=== PATIENT | female | born 1980 | race Caucasian/White ===

== ENCOUNTER 2018-01-24 16:31 | Emergency (ER) | payer OTHER ==
[2018-01-24 16:42] VITALS: RESP 18
[2018-01-24] MEDS ORDERED: KETOROLAC 30 MG/ML 1 ML VIAL IVP STA (16:47)
[2018-01-24] MEDS ORDERED: METOCLOPRAMIDE 5 MG/ML 2 ML VIAL IVP STA (16:47)
[2018-01-24] MEDS ORDERED: ORPHENADRINE 30 MG/ML 2 ML VIAL IVP STA (16:47)
[2018-01-24] MEDS ORDERED: diphenhydrAMINE 50 MG/ML 1 ML VIAL IVP STA (16:47)
[2018-01-24] MEDS ORDERED: methylPREDNISolone SOD SUCCI 125 MG/2 ML VIAL IV STA (16:47)
--- NOTE | 2018-01-24 16:53 | ED ---
Headache HPI - General Chief Complaint: Headache Stated Complaint: Headache, Numbness in arm Time Seen by Provider: 01/24/18 16:39 Mode of arrival: ambulatory Limitations: no limitations - History of Present Illness Initial Comments: 37-year-old female patient presents to the emergency department today for complaints of neck pain and headache. Patient states that she has chronic neck pain after having a cervical fusion in 2011. Patient states she occasionally gets flareups where the neck becomes painful and she has some numbness to her left arm. Patient states that she has had a migraine headache for approximately one month. She states that shows a history of migraines so this is not unusual for her. She denies any nausea or vomiting. Denies any light or sound sensitivity. States she presented today because she was having increased pain with turning her head to the left. She denies any injury to the neck. Patient states that she recently had a medication change from Deford to Tramadol. She states the tramadol makes her nauseous so she does not take it. Patient states she has not been taking anything else for her symptoms. Patient denies any recent rash, fever, chills, shortness breath, chest pain, abdominal pain, diarrhea, constipation, back pain, dizziness, weakness, hematuria, dysuria , urinary urgency, urinary frequency, headache, visual changes, or any other complaints. - Related Data Home Medications Medication Instructions Recorded Confirmed FLUoxetine HCL [PROzac] 40 mg PO DAILY 05/17/14 01/24/18 clonazePAM [KlonoPIN] 1 mg PO BID PRN 05/17/14 01/24/18 Ondansetron Odt [Zofran Odt] 4 mg PO Q8HR PRN 04/27/16 01/24/18 FLUoxetine HCL [PROzac] 20 mg PO DAILY 01/24/18 01/24/18 Meclizine [Antivert] 25 mg PO TID PRN 01/24/18 01/24/18 Previous Rx's Medication Instructions Recorded Cyclobenzaprine [Flexeril] 10 mg PO TID #15 tab 01/24/18 Hydrocodone/Acetaminophen [[place] 1 tab PO Q6HR PRN #12 tab 01/24/18 5-325] Ibuprofen [Motrin] 600 mg PO Q8HR PRN #30 tab 01/24/18 predniSONE 50 mg PO DAILY #5 tablet 03/30/18 Allergies Allergy/AdvReac Type Severity Reaction Status Date / Time codeine Allergy Dyspnea Verified 01/24/18 16:50 fexofenadine HCl Allergy Dyspnea Verified 01/24/18 16:50 [From Janett] ketorolac tromethamine Allergy Unknown Verified 01/24/18 16:50 [From Toradol] Review of Systems ROS Statement: Those systems with pertinent positive or pertinent negative responses have been documented in the HPI. ROS Other: All systems not noted in ROS Statement are negative. Past Medical History Past Medical History: Fibromyalgia Additional Past Medical History / Comment(s): migraines, nerve damage, chronic back and neck pain History of Any Multi-Drug Resistant Organisms: None Reported Past Surgical History: Back Surgery Additional Past Surgical History / Comment(s): acdf surgery Past Psychological History: Anxiety, Panic Disorder Smoking Status: Former smoker Past Alcohol Use History: None Reported Past Drug Use History: None Reported General Exam Limitations: no limitations General appearance: alert, in no apparent distress, other (This is a well- developed, well-nourished adult female patient in no acute distress. Vital signs upon presentation are temperature 97.6F, pulse 98, respirations 18, blood pressure 118/61, pulse ox 98% on room air.) Eye exam: Present: normal appearance, PERRL, EOMI. Absent: scleral icterus, conjunctival injection, nystagmus, periorbital swelling ENT exam: Present: normal exam, normal oropharynx, mucous membranes moist Neck exam: Present: normal inspection. Absent: tenderness (No midline posterior cervical tenderness), meningismus, lymphadenopathy Respiratory exam: Present: normal lung sounds bilaterally. Absent: respiratory distress, wheezes, rales, rhonchi, stridor Cardiovascular Exam: Present: regular rate, normal rhythm, normal heart sounds. Absent: systolic murmur, diastolic murmur, rubs, gallop, clicks GI/Abdominal exam: Present: soft, normal bowel sounds. Absent: distended, tenderness, guarding, rebound, rigid Back exam: Present: normal inspection Neurological exam: Present: alert, oriented X3, CN II-XII intact, other ( Strength in all 4 extremities is 5/5) Psychiatric exam: Present: normal affect, normal mood Skin exam: Present: warm, dry, intact, normal color. Absent: rash Course Vital Signs 01/24/18 16:39 Temperature 97.6 F Pulse Rate 98 Respiratory 18 Rate Blood Pressure 118/61 O2 Sat by Pulse 98 Oximetry Medical Decision Making - Medical Decision Making 37-year-old female patient presented to the emergency department today for complaints of headache, neck pain, and left arm numbness and tingling. Physical examination was unremarkable. Patient is neurologically intact. Strength is equal in her upper extremities. Patient reports the pain is chronic however just seems worsening over the last couple of days. We did administer IV fluids, Benadryl, Solu-Medrol, Norflex, and Toradol. Patient states that she does not have much improvement with her symptoms. Patient symptoms are consistent with cervical radiculopathy. We did discuss possible need for MRI. She will be referred over to [facility]. She is instructed to complete medications. She is instructed to return here immediately for any new, worsening, or concerning symptoms. She verbalizes understanding and agrees with this plan. Disposition Clinical Impression: Cervical radiculopathy, Migraine Disposition: HOME SELF-CARE Condition: Good Instructions: Migraine Headache (ED), Cervical Radiculopathy (ED) Additional Instructions: Apply warm moist heat to the neck. Take medications as directed. Follow-up with orthopedics for reevaluation. Follow up with her primary care physician as directed. Return here immediately for any new, worsening, or concerning symptoms. Prescriptions: Cyclobenzaprine [Flexeril] 10 mg PO TID #15 tab Hydrocodone/Acetaminophen [[place] 5-325] 1 tab PO Q6HR PRN #12 tab PRN Reason: Pain Ibuprofen [Motrin] 600 mg PO Q8HR PRN #30 tab PRN Reason: Pain predniSONE 50 mg PO DAILY #5 tablet Referrals: Gregor Rubio MD [Primary Care Provider] - 1-2 days Time of Disposition: 18:34
[2018-01-24 19:26] VITALS: BP 112/66; PULSE 71; TEMP 98.6
== END 2018-01-24 19:23 | disposition home or self-care (01) ==
LOC: EC 16:31
DX: G43.909 Migraine, unspecified, not intractable, without status migrainosus (principal); M54.12 Radiculopathy, cervical region; F41.0 Panic disorder [episodic paroxysmal anxiety]; Z87.891 Personal history of nicotine dependence; Z79.899 Other long term (current) drug therapy; Z88.5 Allergy status to narcotic agent; Z88.6 Allergy status to analgesic agent; Z88.8 Allergy status to other drugs, medicaments and biological substances
CPT/HCPCS: 99283; 96374; 96375 ×4; J1200; J2360; J2765; J2930; J1885

== ENCOUNTER → 2018-05-24 | Outpatient (CLI) | payer OTHER ==
--- NOTE | 2018-05-26 13:48 | MR ---
EXAMINATION TYPE: MR cspine/lspine wo/w con DATE OF EXAM: 05/24/2018 COMPARISON: 09/16/2015 HISTORY: Cervicalgia, low back pain TECHNIQUE: Multiplanar, multisequence images of the lumbar spine is performed without and with IV contrast, util izing 6 mL intravenous Gadavist FINDINGS: CERVICAL SPINE: Cervical spine maintains normal vertebral body heights and alignment. There is susceptibility artifac t from an anterior cervical fusion device at C5-C6. No abnormal postcontrast enhancement. And no susp icious extra dural fluid collection. Visualized portions of the posterior fossa are grossly unremarka ble. No prevertebral soft tissue swelling. C2-C3: No significant disc disease, spinal canal stenosis or neuroforaminal narrowing. C3-C4: There is redemonstration of a small central disc herniations superimposed upon a broad-based d isc bulge impressing effacing the ventral subarachnoid space and impressing upon the ventral thecal c ontact. No alteration in cord signal. This is similar in degree to the prior exam. There is also unco vertebral hypertrophy at this level mildly narrowing the neural foramen. There is resultant mild spin al canal stenosis. C4-C5: Broad-based disc bulge without focal herniation. The disc bulges right eccentric creating very mild right neural foraminal narrowing. Minimal left-sided uncovertebral hypertrophy is seen without significant left neural foraminal narrowing. No spinal canal stenosis. C5-C6 and C6-C7: There is redemonstration of surgical hardware and susceptibility artifact. No spinal canal stenosis or neuroforaminal narrowing. C7-T1: No significant disc disease, spinal canal stenosis or neuroforaminal narrowing. LUMBAR SPINE: There is straightening of usual lumbar lordosis. Bone marrow signal is within normal limits. There is a T1/T2 small vertebral body hemangioma of L2. This is seen at the left lateral margin near the supe rior endplate. There is no suspicious extra-axial fluid collection. Conus medullaris is unremarkable terminating at L2. L1-L2: There is minimal disc desiccation without focal herniation, spinal stenosis or neural foramina l narrowing. L2-L3: There is a very small broad-based disc bulge without spinal canal stenosis or neural foraminal narrowing. L3-L4: There is a left eccentric broad-based disc bulge and facet arthropathy creating mild left neur al foraminal narrowing. Spinal canal and right neural foramen are patent. L4-L5: There is a left eccentric broad-based disc bulge and very small left paracentral annular tear. There is also mild facet arthropathy with resultant minimal bilateral neural foraminal narrowing. Th ere is slight narrowing of the spinal canal without significant stenosis. L5-S1: There is a small central to right paracentral disc herniation superimposed upon a broad-based disc bulge without spinal canal stenosis or neural foraminal narrowing. No abnormal postcontrast enhancement. IMPRESSION: 1. Similar-appearing small central disc herniation at C3-C4 resulting in mild spinal canal stenosis. New mild uncovertebral hypertrophy creates mild bilateral neural foraminal narrowing at this level. 2. The previously seen disc herniation at C3-C4 has improved and now appears as a broad-based disc bu lge without spinal canal stenosis. 3. Small central to right paracentral disc herniation at L5-S1 without spinal canal stenosis or neura l foraminal narrowing. 4. Degenerative disc disease of the lumbar spine creating mild left neural foraminal narrowing at L3- L4 and minimal bilateral neural foraminal narrowing at L4-L5.
== END | disposition home or self-care (01) ==
LOC: RADMRIMAIN 10:24
PROVIDERS: ATTEND Family Medicine
DX: M54.2 Cervicalgia (principal); M54.5 Low back pain; M50.21 Other cervical disc displacement, high cervical region; M51.27 Other intervertebral disc displacement, lumbosacral region; M51.36 Other intervertebral disc degeneration, lumbar region
CPT/HCPCS: 72156; 72158; A9581

== ENCOUNTER → 2019-01-16 | Outpatient (CLI) | payer OTHER ==
[2019-01-20 08:50] VITALS: BMI 23.4
== END ==
LOC: LABWHC1 09:16
PROVIDERS: ATTEND Family Medicine
DX: Z71.9 Counseling, unspecified (principal)
CPT/HCPCS: 97802

== ENCOUNTER → 2019-01-21 | Outpatient (CLI) | payer OTHER ==
--- NOTE | 2019-01-21 13:51 | US ---
EXAMINATION TYPE: US transvaginal DATE OF EXAM: 01/21/2019 COMPARISON: 08/25/2012 CLINICAL HISTORY: 38-year-old female R10.33 Periumbilical pain. TECHNIQUE: Transvaginal (TV). Date of LMP: 01/02/19 FINDINGS: EXAM MEASUREMENTS: Uterus: 8.1 x 4.1 x 5.7 cm Endometrial Stripe: 1.1 cm Right Ovary: 4.0 x 2.3 3.0 cm Left Ovary: 3.0 x 1.8 x 1.7 cm 1. Uterus: Anteverted . Suggestion of prior scar anterior lower uterine segment. Tiny ce rvical nabothian cysts are demonstrated. 2. Endometrium: 1.1 cm, wnl for secretory phase 3. Right Ovary: 1.7 x 1.4 x 1.0 cm cyst with some internal debris or hemorrhage. 4. Left Ovary: wnl 5. Bilateral Adnexa: wnl 6. Posterior cul-de-sac: no free fluid IMPRESSION: 1. Endometrial stripe measuring 1.1 cm which should correspond to the secretory phase of the menstrua l cycle. 2. Suggestion of a scar along the anterior lower uterine segment. 3. Dominant follicle or functional cyst measuring 1.7 cm in the right ovary.
== END ==
LOC: RADUSWWP 13:03
PROVIDERS: ATTEND Nurse Practitioner Adult Health
DX: R10.33 Periumbilical pain (principal)
CPT/HCPCS: 76830

== ENCOUNTER 2019-02-17 19:44 | Emergency (ER) | payer OTHER ==
[2019-02-17 20:00] VITALS: TEMP 97.6
[2019-02-17 20:27] LABS: Appearance,Urine Cloudy (Clear); Bilirubin,Urine Negative (Negative); Blood,Urine Negative (Negative); Color,Urine Yellow; Glucose,Urine (UA) Negative (Negative); Hyaline Casts,Urine 6 /lpf (0-2); Ketones,Urine Trace (Negative); Leukocyte Esterase,Urine Negative (Negative); Mucus,Urine Many /hpf; Nitrite,Urine Negative (Negative); PH, Urine 5.5 (5.0-8.0); Protein,Urine 1+ (Negative); RBC,Urine 1 /hpf (0-5); Specific Gravity,Urine 1.034 (1.001-1.035); Squamous Epithelial Cell,Urine 9 /hpf (0-4); WBC,Urine 2 /hpf (0-5)
[2019-02-17] MEDS ORDERED: ONDANSETRON 4 MG/2 ML VIAL IVP STA (21:26)
[2019-02-17] MEDS ORDERED: SODIUM CHLORIDE 0.9% 1,000 ML IV STA (21:26)
[2019-02-17] MEDS ORDERED: HYDROmorphone 1 MG/ML 1 ML SYRINGE IVP STA (21:26)
[2019-02-17 21:48] LABS: Basophils # (A) 0.1 k/uL (0-0.2); Basophils % (A) 1 %; Eosinophils # (A) 0.4 k/uL (0-0.7); Eosinophils % (A) 5 %; HCT 37.6 % (34.0-46.0); HGB 12.7 gm/dL (11.4-16.0); Lymphocytes # (A) 3.3 k/uL (1.0-4.8); Lymphocytes % (A) 42 %; MCH 30.3 pg (25.0-35.0); MCHC 33.8 g/dL (31.0-37.0); MCV 89.8 fL (80.0-100.0); Mean Platelet Volume 6.6; Monocytes # (A) 0.5 k/uL (0-1.0); Monocytes % (A) 6 %; Neutrophils # (A) 3.3 k/uL (1.3-7.7); Neutrophils % (A) 43 %; Platelet Count 264 k/uL (150-450); RBC 4.19 m/uL (3.80-5.40); WBC 7.8 k/uL (3.8-10.6)
[2019-02-17 21:58] LABS: ALT 30 U/L (9-52); AST 17 U/L (14-36); Alkaline Phosphatase 67 U/L (38-126); Amylase 43 U/L (30-110); Anion Gap 9 mmol/L; Blood Urea Nitrogen 15 mg/dL (7-17); Calcium 9.1 mg/dL (8.4-10.2); Carbon Dioxide 24 mmol/L (22-30); Chloride 106 mmol/L (98-107); Glucose 88 mg/dL (74-99); Lipase 105 U/L (23-300); Potassium 4.1 mmol/L (3.5-5.1); Sodium 139 mmol/L (137-145); Total Bilirubin 0.2 mg/dL (0.2-1.3); Total Protein 6.6 g/dL (6.3-8.2)
--- NOTE | 2019-02-17 23:11 | US ---
EXAM: US Pelvis, Transvaginal CLINICAL HISTORY: ITS.REASON US Reason: Pain TECHNIQUE: Real-time transvaginal pelvic ultrasound (complete) with image documentation. Transvaginal imaging was used for better evaluation of the endometrium and adnexa. COMPARISON: No relevant prior studies available. FINDINGS: Normal uterus. 2.9 cm right ovarian cyst. 2.6 cm complex lesion adjacent to the right ovary. The lesion was not definitely present on the prior. Left ovary not well seen. No evidence for right ovarian torsion. No free fluid. IMPRESSION: Right ovarian cyst. Right adnexal complex lesion. Differential diagnosis includes hemorrhagic paraovarian cyst, tubo-ovarian abscess, and ectopic . Correlate with contrast-enhanced CT.
[2019-02-17] MEDS ORDERED: HYDROmorphone 2 MG/ML 1 ML SYRINGE IVP STA (23:39)
[2019-02-18 00:28] VITALS: BP 117/88; PULSE 68; RESP 18
--- NOTE | 2019-02-18 00:35 | CT ---
EXAM: CT Abdomen and Pelvis With Intravenous Contrast CLINICAL HISTORY: ITS.REASON CT Reason: Pain TECHNIQUE: Axial computed tomography images of the abdomen and pelvis with intravenous contrast. This CT exam was performed using one or more of the following dose reduction techniques: automated exposure control, adjustment of the mA and/or kV according to patient size, and/or use of iterative reconstruction technique. COMPARISON: No relevant prior studies available. FINDINGS: Lung bases: Unremarkable. No mass. No consolidation. ABDOMEN: Liver: Unremarkable. No mass. Gallbladder and bile ducts: No abnormal ductal dilation or stones. Pancreas: Unremarkable. No mass. No ductal dilation. Spleen: Unremarkable. No splenomegaly. Adrenals: Unremarkable. No mass. Kidneys and ureters: Unremarkable. No solid mass. No hydronephrosis. Stomach and bowel: No obstruction. No mucosal thickening. PELVIS: Appendix: No findings to suggest acute appendicitis. Bladder: Unremarkable. No mass. Reproductive: 3 cm simple right ovarian cyst. ABDOMEN and PELVIS: Intraperitoneal space: Unremarkable. No free air. No significant fluid collection. Bones/joints: No acute fracture. No dislocation. Soft tissues: Unremarkable. Vasculature: No abdominal aortic aneurysm. Lymph nodes: Unremarkable. No enlarged lymph nodes. IMPRESSION: 3 cm simple right ovarian cyst. The "adnexal" lesion referred to in the report for the pelvic ultrasound may Instead represent the normal cecum which is found in the right hemipelvis.
--- NOTE | 2019-02-18 00:43 | ED ---
Abdominal Pain HPI - General Chief Complaint: Abdominal Pain Stated Complaint: Abd pain Time Seen by Provider: 02/17/19 20:29 Source: patient Mode of arrival: ambulatory Limitations: no limitations - History of Present Illness Initial Comments: 38 year-old female patient presents to the emergency department today for evaluation of lower abdominal pain and pressure. Patient states that she has had similar symptoms for the last few weeks worsening over the last 3 days. Patient denies radiation of the pain through to her back. Denies any abnormal vaginal bleeding or discharge. Patient reports some nausea but no vomiting. Denies any constipation or diarrhea. Patient denies fevers or chills. Patient did have ultrasound at the end of December showing ovarian cysts she is unsure if this may be causing her pain. She says she has not yet been able to follow-up with her spooling machine operator. Patient denies any recent rash, shortness breath, chest pain, abdominal pain, back pain, numbness, tingling, dizziness, weakness, hematuria, dysuria, urinary urgency, urinary frequency, headache, visual changes, or any other complaints. - Related Data Home Medications Medication Instructions Recorded Confirmed FLUoxetine HCL [PROzac] 40 mg PO DAILY 05/17/14 02/17/19 clonazePAM [KlonoPIN] 1 mg PO BID PRN 05/17/14 02/17/19 Ondansetron Odt [Zofran Odt] 4 mg PO Q8HR PRN 04/27/16 02/17/19 FLUoxetine HCL [PROzac] 20 mg PO DAILY 01/24/18 02/17/19 Meclizine [Antivert] 25 mg PO TID PRN 01/24/18 02/17/19 Ibuprofen [Motrin] 800 mg PO Q6H 02/17/19 02/17/19 Methocarbamol [Robaxin] 500 mg PO TID 02/17/19 02/17/19 Promethazine [Phenergan] 25 mg PO Q8H PRN 02/17/19 02/17/19 Allergies Allergy/AdvReac Type Severity Reaction Status Date / Time codeine Allergy Dyspnea Verified 01/24/18 16:50 fexofenadine HCl Allergy Dyspnea Verified 01/24/18 16:50 [From Janett] ketorolac tromethamine Allergy Unknown Verified 01/24/18 16:50 [From Toradol] Review of Systems ROS Statement: Those systems with pertinent positive or pertinent negative responses have been documented in the HPI. ROS Other: All systems not noted in ROS Statement are negative. Past Medical History Past Medical History: Fibromyalgia Additional Past Medical History / Comment(s): migraines, nerve damage, chronic back and neck pain, ovarian cyst. History of Any Multi-Drug Resistant Organisms: None Reported Past Surgical History: Back Surgery Additional Past Surgical History / Comment(s): acdf surgery Past Psychological History: Anxiety, Panic Disorder Smoking Status: Former smoker Past Alcohol Use History: None Reported Past Drug Use History: None Reported General Exam Limitations: no limitations General appearance: alert, in no apparent distress, other (This is a well- developed, well-nourished adult female patient in no acute distress. Vital signs upon presentation are temperature 97.6F, pulse 72, respirations 16, blood pressure 97/56, pulse ox 99% on room air.) Eye exam: Present: normal appearance, PERRL, EOMI. Absent: scleral icterus, conjunctival injection, periorbital swelling ENT exam: Present: normal exam, normal oropharynx, mucous membranes moist Respiratory exam: Present: normal lung sounds bilaterally. Absent: respiratory distress, wheezes, rales, rhonchi, stridor Cardiovascular Exam: Present: regular rate, normal rhythm, normal heart sounds. Absent: systolic murmur, diastolic murmur, rubs, gallop, clicks GI/Abdominal exam: Present: soft, tenderness (Lower abdominal tenderness), normal bowel sounds. Absent: distended, guarding, rebound, rigid Back exam: Present: normal inspection. Absent: CVA tenderness (R), CVA tenderness (L) Neurological exam: Present: alert, oriented X3, CN II-XII intact Psychiatric exam: Present: normal affect, normal mood Skin exam: Present: warm, dry, intact, normal color. Absent: rash Course Vital Signs 02/17/19 02/18/19 19:56 00:27 Temperature 97.6 F Pulse Rate 72 68 Respiratory 16 18 Rate Blood Pressure 97/56 117/88 O2 Sat by Pulse 99 99 Oximetry Medical Decision Making - Medical Decision Making 38 year-old female patient presents to the emergency department today for evaluation of lower abdominal pain. Physical examination did reveal some lower abdominal tenderness. No CVA tenderness. She is afebrile, vital signs are stable. Labs reviewed and are unremarkable. Patient is not . Ultras ound report did show right ovarian cyst measuring 2.8 cm. There is also a complex cystic lesion noted near the right ovary, CT scan was recommended to further characterize. CT abdomen and pelvis with contrast was obtained and showed 3 cm simple right ovarian cyst, it is felt a complex lesion was a normal cecum located in the right hemipelvis. I did discuss findings and results with the patient. Pain could be related to ovarian cyst. Be discharged home to follow-up with her spooling machine operator and her primary care physician for recheck as soon as possible. Return parameters were discussed in detail. She verbalizes understanding and agrees with this plan. - Lab Data Result diagrams: 02/17/19 21:37 02/17/19 21:37 Lab Results 02/17/19 02/17/19 02/17/19 Range/Units 20:10 20:10 21:37 WBC (3.8-10.6) k/uL RBC (3.80-5.40) m/uL Hgb (11.4-16.0) gm/dL Hct (34.0-46.0) % MCV (80.0-100.0) fL MCH (25.0-35.0) pg MCHC (31.0-37.0) g/dL RDW (11.5-15.5) % Plt Count (150-450) k/uL Neutrophils % % Lymphocytes % % Monocytes % % Eosinophils % % Basophils % % Neutrophils # (1.3-7.7) k/uL Lymphocytes # (1.0-4.8) k/uL Monocytes # (0-1.0) k/uL Eosinophils # (0-0.7) k/uL Basophils # (0-0.2) k/uL Sodium 139 (137-145) mmol/L Potassium 4.1 (3.5-5.1) mmol/L Chloride 106 (98-107) mmol/L Carbon Dioxide 24 (22-30) mmol/L Anion Gap 9 mmol/L BUN 15 (7-17) mg/dL Creatinine 0.65 (0.52-1.04) mg/dL Est GFR (CKD-EPI)AfAm >90 (>60 ml/min/1.73 sqM) Est GFR (CKD-EPI)NonAf >90 (>60 ml/min/1.73 sqM) Glucose 88 (74-99) mg/dL Calcium 9.1 (8.4-10.2) mg/dL Total Bilirubin 0.2 (0.2-1.3) mg/dL AST 17 (14-36) U/L ALT 30 (9-52) U/L Alkaline Phosphatase 67 (38-126) U/L Total Protein 6.6 (6.3-8.2) g/dL Albumin 4.0 (3.5-5.0) g/dL Amylase 43 (30-110) U/L Lipase 105 (23-300) U/L Urine Color Yellow Urine Appearance Cloudy H (Clear) Urine pH 5.5 (5.0-8.0) Ur Specific [place] 1.034 (1.001-1.035) Urine Protein 1+ H (Negative) Urine Glucose (UA) Negative (Negative) Urine Ketones Trace H (Negative) Urine Blood Negative (Negative) Urine Nitrite Negative (Negative) Urine Bilirubin Negative (Negative) Urine Urobilinogen 3.0 (<2.0) mg/dL Ur Leukocyte Esterase Negative (Negative) Urine RBC 1 (0-5) /hpf Urine WBC 2 (0-5) /hpf Ur Squamous Epith Cells 9 H (0-4) /hpf Hyaline Casts 6 H (0-2) /lpf Urine Mucus Many H (None) /hpf Urine HCG, Qual Not Detected (Not Detectd) 02/17/19 Range/Units 21:37 WBC 7.8 (3.8-10.6) k/uL RBC 4.19 (3.80-5.40) m/uL Hgb 12.7 (11.4-16.0) gm/dL Hct 37.6 (34.0-46.0) % MCV 89.8 (80.0-100.0) fL MCH 30.3 (25.0-35.0) pg MCHC 33.8 (31.0-37.0) g/dL RDW 13.0 (11.5-15.5) % Plt Count 264 (150-450) k/uL Neutrophils % 43 % Lymphocytes % 42 % Monocytes % 6 % Eosinophils % 5 % Basophils % 1 % Neutrophils # 3.3 (1.3-7.7) k/uL Lymphocytes # 3.3 (1.0-4.8) k/uL Monocytes # 0.5 (0-1.0) k/uL Eosinophils # 0.4 (0-0.7) k/uL Basophils # 0.1 (0-0.2) k/uL Sodium (137-145) mmol/L Potassium (3.5-5.1) mmol/L Chloride (98-107) mmol/L Carbon Dioxide (22-30) mmol/L Anion Gap mmol/L BUN (7-17) mg/dL Creatinine (0.52-1.04) mg/dL Est GFR (CKD-EPI)AfAm (>60 ml/min/1.73 sqM) Est GFR (CKD-EPI)NonAf (>60 ml/min/1.73 sqM) Glucose (74-99) mg/dL Calcium (8.4-10.2) mg/dL Total Bilirubin (0.2-1.3) mg/dL AST (14-36) U/L ALT (9-52) U/L Alkaline Phosphatase (38-126) U/L Total Protein (6.3-8.2) g/dL Albumin (3.5-5.0) g/dL Amylase (30-110) U/L Lipase (23-300) U/L Urine Color Urine Appearance (Clear) Urine pH (5.0-8.0) Ur Specific [place] (1.001-1.035) Urine Protein (Negative) Urine Glucose (UA) (Negative) Urine Ketones (Negative) Urine Blood (Negative) Urine Nitrite (Negative) Urine Bilirubin (Negative) Urine Urobilinogen (<2.0) mg/dL Ur Leukocyte Esterase (Negative) Urine RBC (0-5) /hpf Urine WBC (0-5) /hpf Ur Squamous Epith Cells (0-4) /hpf Hyaline Casts (0-2) /lpf Urine Mucus (None) /hpf Urine HCG, Qual (Not Detectd) - Radiology Data Radiology results: report reviewed, image reviewed CT abdomen and pelvis was obtained with contrast. Report was reviewed in its entirety. Impression by Dr. Renae shows 3 cm simple right ovarian cyst. The adnexa lesion referred to in the report from the pelvic ultrasound and said represent a normal cecum which is found in the right hemipelvis. Ultrasound of the pelvis was Doppler was obtained. Report was reviewed in its entirety. Impression by Dr. Renae shows right ovarian cyst. Right adnexal complex lesion. Differential diagnosis includes hemorrhagic paraovarian cyst, tubo-ovarian abscess, and ectopic . Correlate with contrast enhanced CT. Disposition Clinical Impression: Abdominal pain Disposition: HOME SELF-CARE Condition: Good Instructions (If sedation given, give patient instructions): Abdominal Pain (ED) Additional Instructions: Take medication as directed. Follow up with your primary care physician for recheck in 1-2 days. Follow up with spooling machine operator as soon as possible. Return to the emergency department for any new, worsening, or concerning symptoms. Is patient prescribed a controlled substance at d/c from ED?: No Referrals: Gregor Rubio MD [Primary Care Provider] - 1-2 days Time of Disposition: 00:43
[2019-02-18] MEDS ORDERED: traMADol 50 MG STARTER PACK 3 TAB BTL PO STA (01:15)
[2019-02-18] MEDS ORDERED: ACET/COD 300 MG/30 MG STARTER PACK 6 TAB BTL PO STA (01:20)
== END 2019-02-18 01:54 | disposition home or self-care (01) ==
LOC: EC 19:44
DX: R10.30 Lower abdominal pain, unspecified (principal); N83.201 Unspecified ovarian cyst, right side; N83.8 Other noninflammatory disorders of ovary, fallopian tube and broad ligament; R11.0 Nausea; G89.29 Other chronic pain; F41.0 Panic disorder [episodic paroxysmal anxiety]; Z87.891 Personal history of nicotine dependence; Z88.5 Allergy status to narcotic agent; Z88.6 Allergy status to analgesic agent; Z88.8 Allergy status to other drugs, medicaments and biological substances; Z79.1 Long term (current) use of non-steroidal anti-inflammatories (NSAID); Z79.899 Other long term (current) drug therapy
CPT/HCPCS: 36415; 80053; 82150; 83690; 85025; 81001; 81025; 93976; 76830; 74177; 99284; 96374; 96376; 96375; 96361 ×4; J1170 ×2; J2405; Q9967

== ENCOUNTER → 2019-09-02 | Outpatient (CLI) | payer OTHER ==
--- NOTE | 2019-09-02 15:08 | US ---
EXAMINATION TYPE: US pelvic complete DATE OF EXAM: 09/02/2019 COMPARISON: Pelvic ultrasound dated 01/21/2019 CLINICAL HISTORY: R10.2 pelvic pain. Chronic pelvic pain. Hx ligation. Hx ovarian cysts. TECHNIQUE: Transabdominal (TA). Transabdominal sonographic images of the pelvis were acquired. Date of LMP: 09/01/2019, EXAM MEASUREMENTS: Uterus: 9.3 x 4.2 x 3.4 cm Endometrial Stripe: 0.3 cm Right Ovary: 2.7 x 1.8 x 1.7 cm Left Ovary: 3.0 x 1.9 x 1.6 cm 1. Uterus: Anteverted wnl 2. Endometrium: wnl 3. Right Ovary: wnl 4. Left Ovary: wnl 5. Bilateral Adnexa: wnl 6. Posterior cul-de-sac: no free fluid IMPRESSION: Unremarkable pelvic ultrasound. No current ovarian cyst seen. Endometrial thickness is wi thin normal limits.
== END | disposition home or self-care (01) ==
LOC: RADUSWWP 14:11
PROVIDERS: ATTEND Family Medicine
DX: R10.2 Pelvic and perineal pain (principal)
CPT/HCPCS: 76856

== ENCOUNTER → 2019-11-04 | Outpatient (CLI) | payer OTHER ==
--- NOTE | 2019-11-05 10:34 | MM ---
Reason for exam: screening (asymptomatic). History: Patient had first child at age 35. Taking hormonal contraceptives. Physical Findings: A clinical breast exam by your physician is recommended on an annual basis and results should be correlated with mammographic findings. MG Screening Mammo w CAD Bilateral CC and MLO view(s) were taken. No prior studies available for comparison. The breast tissue is heterogeneously dense. This may lower the sensitivity of mammography. 9mm lateral left asymmetry 7cm from nipple. ASSESSMENT: Incomplete: need additional imaging evaluation, BI-RAD 0 RECOMMENDATION: Special view mammogram and ultrasound of both breasts. [facility] will attempt to contact patient to return for supplemental views and ultrasound.
== END | disposition home or self-care (01) ==
LOC: RADMAMWWP 15:00
PROVIDERS: ATTEND Obstetrics & Gynecology
DX: Z12.31 Encounter for screening mammogram for malignant neoplasm of breast (principal)
CPT/HCPCS: 77067

== ENCOUNTER → 2019-11-17 | Outpatient (CLI) | payer OTHER ==
--- NOTE | 2019-11-18 09:09 | MM ---
Reason for exam: additional evaluation requested from abnormal screening. Last mammogram was performed less than 1 month ago. History: Patient had first child at age 35. Taking hormonal contraceptives. Physical Findings: Nurse did not find any significant physical abnormalities on exam. MG Work Up Mamm w CAD BILAT Bilateral XCCL view(s) were taken. Spot compression CC view(s) were taken of the right breast. Prior study comparison: November 04, 2019, bilateral MG screening mammo w CAD. The breast tissue is heterogeneously dense. This may lower the sensitivity of mammography. No distinct lesion persist on additional views. These results were verbally communicated with the patient and result sheet given to the patient on 11/17/19. ASSESSMENT: Incomplete: need additional imaging evaluation, BI-RAD 0 RECOMMENDATION: Ultrasound of both breasts. (pain)
--- NOTE | 2019-11-18 09:11 | USB ---
Reason for exam: additional evaluation requested from abnormal screening. History: Patient had first child at age 35. Taking hormonal contraceptives. US Breast BILAT Right complete breast ultrasound includes all four quadrants, the retroareolar region and axilla. Finding demonstrates no cystic or solid lesion seen. Left complete breast ultrasound includes all four quadrants, the retroareolar region and axilla. Finding demonstrates a 0.9 x 0.5 x 0.9cm oval, hypoechoic lesion at 6 o'clock. These results were verbally communicated with the patient and result sheet given to the patient on 11/17/19. ASSESSMENT: Suspicious, BI-RAD 4 RECOMMENDATION: Ultrasound core biopsy of the left breast. (FNA +/-) Called Dr. Lee's office with mammographic findings and has scheduled an appointment for the patient for 11/17/[address] Francis. Biopsy scheduled for 11/25/19 at 12:20. PRELIMINARY REPORT CALLED AND FAXED TO DR. FRANCIS ON 11/18/19.
== END | disposition home or self-care (01) ==
LOC: RADMAMWWP 14:43
PROVIDERS: ATTEND Obstetrics & Gynecology
DX: R92.8 Other abnormal and inconclusive findings on diagnostic imaging of breast (principal)
CPT/HCPCS: 77066

== ENCOUNTER → 2019-11-17 | Outpatient (CLI) | payer OTHER ==
[2019-11-17 16:56] VITALS: BP 107/70; PULSE 94; RESP 18; TEMP 98.3
--- NOTE | 2019-11-17 16:56 | P.GSHP ---
History of Present Illness H&P Date: 11/17/19 Chief Complaint: ultraound abnormality left breast, bilateral breast pain Inna is a 38 year old white female with a complaint of bilateral breast pain. She is seen in consultation for Dr. Lin regarding this as well as an abnormal left breast ultrasound. She has been getting mammograms since her 20s. A mammogram performed on 89 revealed very dense breast tissue. She was also noted to have a 9 mm lateral left asymmetry 7 cm from the nipple. It was recommended that she undergo bilateral ultrasounds of the breast. In the left breast was noted to have a 0.9 x 0.9 cm oval density in the infra-areolar area for which biopsy was recommended. The pain is described as dull, aching and constant. It is located diffusly in both breast. Itf is worse with any contact. It does not seem to spread anyplace. She states the pain is been present for about 12 years. This is not cyclical related to her menstrual cycle. Caffeine: 1 pop/day smoke: none chocolate: several times/week BCP for ovarian cyst at this time Family History: none Hormonal History: menarche: 13 , breast fed: none, first born at 35 periods irregular for a few months/had a leep procedure; had a MIRENA it perforated and she had surgery for this BCP: 2 1/2 years hormones: none Surgical history: 1. 2 C-sections 2. tubaligation 3. remove MIRENA 4. LEEP 5. cervical sine surgery/ spinal stenosis Medical history: 1. panic disorder/with agoraphobia 2. fibromyalgia 3. migrains 4. Chronic neck and back pain 5. Ovarian cyst Social history: Smoke: Negative Alcohol: Occasionally Drugs: Negative - Constitutional Constitutional: Denies chills, Denies fever - EENT Eyes: denies blurred vision, denies pain Ears: deny: decreased hearing, tinnitus Ears, nose, mouth and throat: Reports headache, Denies sore throat - Breasts Breasts: bilateral: as per HPI - Cardiovascular Cardiovascular: Denies chest pain, Denies shortness of breath - Respiratory Respiratory: Denies cough, Denies 7 - Gastrointestinal Comment: IBS with constipation Gastrointestinal: Reports nausea, Denies abdominal pain, Denies diarrhea, Denies vomiting - Genitourinary (Female) Genitourinary: Denies dysuria, Denies hematuria - Menstruation Menstruation: Reports menses variable - Musculoskeletal Musculoskeletal: Reports myalgias - Integumentary Integumentary: Denies pruritus, Denies rash - Neurological Neurological: Reports migraines, Reports numbness, Reports weakness - Psychiatric Comment: panic attacks - Endocrine Endocrine: Reports fatigue, Denies weight change - Hematologic/Lymphatic Comment: none - Allergic/Immunologic Allergic/Immunologic: Reports as per HPI Past Medical History Past Medical History: Fibromyalgia Additional Past Medical History / Comment(s): migraines, nerve damage, chronic back and neck pain, ovarian cyst. History of Any Multi-Drug Resistant Organisms: None Reported Past Surgical History: Back Surgery Additional Past Surgical History / Comment(s): acdf surgery Past Psychological History: Anxiety, Panic Disorder Smoking Status: Former smoker Past Alcohol Use History: None Reported Past Drug Use History: None Reported Medications and Allergies Home Medications Medication Instructions Recorded Confirmed Type FLUoxetine HCL [PROzac] 40 mg PO DAILY 05/17/14 02/17/19 History clonazePAM [KlonoPIN] 1 mg PO BID PRN 05/17/14 02/17/19 History Ondansetron Odt [Zofran Odt] 4 mg PO Q8HR PRN 04/27/16 02/17/19 History FLUoxetine HCL [PROzac] 20 mg PO DAILY 01/24/18 02/17/19 History Meclizine [Antivert] 25 mg PO TID PRN 01/24/18 02/17/19 History Ibuprofen [Motrin] 800 mg PO Q6H 02/17/19 02/17/19 History Methocarbamol [Robaxin] 500 mg PO TID 02/17/19 02/17/19 History Promethazine [Phenergan] 25 mg PO Q8H PRN 02/17/19 02/17/19 History Allergies Allergy/AdvReac Type Severity Reaction Status Date / Time codeine Allergy Dyspnea Verified 01/24/18 16:50 fexofenadine HCl Allergy Dyspnea Verified 01/24/18 16:50 [From Janett] ketorolac tromethamine Allergy Unknown Verified 01/24/18 16:50 [From Toradol] Surgical - Exam BMI 24 - General well developed, well nourished, no distress - Eyes normal ocular movement - ENT normal pinna, no hearing loss, no congestion - Neck no masses, trachea midline - Respiratory normal expansion, normal respiratory effort, clear to auscultation - Cardiovascular Rhythm: regular Heart Sounds: normal: S1, S2 - Abdomen Abdomen: soft, non tender, no guarding, no rigid, no rebound - Integumentary normal turgor - Neurologic no disoriented, no combative - Musculoskeletal normal gait, normal posture - Psychiatric oriented to time, oriented to person, oriented to place, speech is normal, memory intact breast exam: BRA 36C ptosis grade 1 Inspection: nipples non-inverted, no skin lesions of concern Palpation: Right breast: Multiple positional exam fibroglandular tissue with fibrocystic changes Right axilla: Shoddy adenopathy Left breast: Multi-positional exam fibrocystic breast changes no dominant masses or nodules of concern Left axilla: Shoddy adenopathy Results Results of mammogram and ultrasound reviewed Assessment and Plan Assessment: Impression: 1. Bilateral mastodynia 2. Marked fibrocystic breast changes 3. Radiographic abnormality left breast for which ultrasound-guided core biopsy recommended 4. Anxiety/panic disorders 5. Fibromyalgia was 6. Cervical disc disease Plan: 1. Trial of primrose oil 2. Discussed that the control may be exacerbating the breast pain 3. Ultrasound core biopsy of the left breast 4. Follow-up the results of ultrasound core biopsy 5. Stop caffeine/chocolate We have discussed the breast pain is most likely fibrocystic in nature. The patient is going to use a trial of primrose oil. She uses Motrin and will use this as needed related to the breast pain. She is going to stop her caffeine/chocolate. She is also going to undergo left breast ultrasound-guided core biopsy. Risks and benefits are discussed with the patient and she will follow after this. Cc: Dr. Lee/Dr. Gregor Rubio Encounter 30 minutes, > 50% of time spent in planning and counselling.
== END | disposition home or self-care (01) ==
LOC: WWCWWP 16:08
PROVIDERS: ATTEND Surgery
DX: Z53.9 Procedure and treatment not carried out, unspecified reason (principal)

== ENCOUNTER → 2019-11-25 | Day surgery (SDC) | payer OTHER ==
[2019-11-25 11:51] VITALS: RESP 16; TEMP 97.8
[2019-11-25 13:03] VITALS: BP 110/75; PULSE 83
--- NOTE | 2019-11-25 13:37 | USB ---
EXAMINATION TYPE: US biopsy breast VAD LT DATE OF EXAM: 11/25/2019 CLINICAL HISTORY: R92.9 Abnormal Mammogram. TECHNIQUE: Ultrasound guided core biopsy of left breast. COMPARISON: Bilateral breast ultrasound dated 11/17/2019 FINDINGS: The procedure of ultrasound guided core biopsy was explained to the patient. Benefits, alt ernatives, and risks were discussed. An informed consent was then obtained. Preprocedural timeout w as performed. On preprocedural imaging 3 masses are seen at the 6:00 position. The first for which biopsy was initi ally recommended appeared cystic on real-time imaging. Adjacent 0.7 x 0.7 x 0.3 cm solid mass was see n for which biopsy was performed and a third 0.4 x 0.3 x 0.4 cm mass also at the 6:00 position simila r in appearance to the 0.7 cm mass. Recommendation for this mass will be made on radiologic/pathologi c correlation. The patient was placed in supine positioning for imaging and for the procedure. The overlying skin w as prepped and draped in usual sterile fashion. 10 cc of 1% lidocaine was used as anesthetic into the skin and subcutaneous tissue up to a 0.7 x 0.7 x 0.3 cm mass at the 6:00 position in the left breast . Under ultrasound guidance, a 12-gauge vacuum assisted biopsy gun device was used to obtain 5 core mansi ples. Following this, a ribbon-shaped biopsy marker was left in the mass, well seen on ultrasound. This mass was not seen on mammogram and therefore no post biopsy mammogram was obtained. The patient tolerated the procedure well without any immediate complication. The patient was kept in the radiology department for short stay after the procedure and then discharged home in stable condi tion. IMPRESSION: Successful, uncomplicated ultrasound guided core biopsy of the largest and most solid mas s at the 6:00 position out of 3 masses, full pathology results to follow. Recommendation for the smal ler similar-appearing possible fibroadenoma will be made on radiologic/pathologic correlation.
== END ==
LOC: RADUSWWP 11:17
PROVIDERS: ATTEND Surgery
DX: D24.2 Benign neoplasm of left breast (principal); N60.12 Diffuse cystic mastopathy of left breast; N62 Hypertrophy of breast
CPT/HCPCS: 19083; A4648; J2001; 88305

== ENCOUNTER 2021-02-01 09:14 | Day surgery (SDC) | payer OTHER ==
[2021-01-30 11:14] VITALS: BMI 22.4
[~2021-02-01 09:14] MED LIST: LACTATED RINGERS 1,000 ML IV SCH; LIDOCAINE 1% (10MG/ML) FOR IV START INTRADERMA PRN
[2021-02-01 09:47] VITALS: TEMP 98.6
[2021-02-01] MEDS ORDERED: LIDOCAINE 1% INJ 10MG/ML (20 ML MDV) ONE (10:20)
[2021-02-01] MEDS ORDERED: PROPOFOL 10 MG/ML 20 ML VIAL IV ONE (10:20)
--- NOTE | 2021-02-01 10:31 | P.PCN ---
Date of Procedure: 02/01/21 Procedure(s) Performed: BRIEF HISTORY: Patient is a 40-year-old, pleasant, white female scheduled for an upper endoscopy as a part of evaluation of epigastric burning pain for the last 6-7 months duration.. PROCEDURE PERFORMED: Esophagogastroduodenoscopy with biopsy. PREOPERATIVE DIAGNOSIS: Epigastric burning pain. IV sedation per anesthesia. PROCEDURE: After informed consent was obtained, the patient was brought into the endoscopy unit. IV sedation was administered by Anesthesia under continuous monitoring. Initially the Olympus GIF-140 video endoscope was inserted into the mouth. Esophagus intubated without any difficulty. It was gradually advanced into the stomach and duodenum and carefully examined. The bulb and the second part of the duodenum appeared normal. Abscesses were done from the duodenum to rule out celiac disease. The scope at this time was withdrawn to the stomach, adequately insufflated with air, and upon careful examination, mucosa of the antrum, had mild gastritis and biopsies were done from this area. The body, cardia and the fundus appeared normal. The scope was then withdrawn into the esophagus. The GE junction was located at 39 cm from the incisors. The esophagus appeared normal. There were no erosions or ulcerations seen , biopsies were done from the distal esophagus and the patient tolerated the procedure well. IMPRESSION: 1. Mild antral gastritis. 2. Normal-appearing esophagus with no evidence of esophagitis. RECOMMENDATIONS: The findings of this examination were discussed with the patient is a family. She was advised to follow with the biopsy results.. She'll continue with omeprazole 20 mg daily and follow antireflux measures.
[2021-02-01 10:48] VITALS: BP 100/70; PULSE 78; RESP 18
== END 2021-02-01 11:32 | disposition home or self-care (01) ==
LOC: ORWHC2ENDO 09:14
PROVIDERS: ATTEND Internal Medicine Gastroenterology
DX: K29.50 Unspecified chronic gastritis without bleeding (principal); K21.00 Gastro-esophageal reflux disease with esophagitis, without bleeding; M79.7 Fibromyalgia; G62.9 Polyneuropathy, unspecified; Z98.890 Other specified postprocedural states; F41.9 Anxiety disorder, unspecified; F41.0 Panic disorder [episodic paroxysmal anxiety]; Z79.1 Long term (current) use of non-steroidal anti-inflammatories (NSAID); Z79.899 Other long term (current) drug therapy; Z88.5 Allergy status to narcotic agent; Z88.8 Allergy status to other drugs, medicaments and biological substances
CPT/HCPCS: 81025; 88305; 43239; J2001; J2704

== ENCOUNTER → 2021-02-06 | Outpatient (CLI) | payer OTHER ==
--- NOTE | 2021-02-06 08:48 | US ---
EXAMINATION TYPE: US abdomen complete DATE OF EXAM: 02/06/2021 COMPARISON: CT February 18, 2019 CLINICAL HISTORY: R10.9 abd pain, R10.2 pelvic pain. 6 months abdominal pelvic pain; IBS with constip ation;patient stated has bilateral flank pain while technologist was scanning left kidney. EXAM MEASUREMENTS: Liver Length: 13.4 cm Gallbladder Wall: 0.2 cm CBD: 0.6 cm Spleen: 10.2 cm Right Kidney: 9.4 x 5.5 x 3.8 cm Left Kidney: 10.6 x 5.0 x 4.6 cm Pancreas: wnl Liver: wnl Gallbladder: wnl Evidence for sonographic Mckoy's sign: no CBD: wnl Spleen: wnl Right Kidney: No hydronephrosis or masses seen Left Kidney: small hyperechoic focus in upper pole may be small calcification(s) = 0.4 x 0.4 x 0.2cm Upper IVC: wnl Abd Aorta: wnl The visualized liver is homogenous. The intrahepatic portion of the IVC and visualizing a abdominal aorta are within normal limits. There is no evidence of cholelithiasis. Common bile duct is unremar kable. The visualized portions of the pancreas are homogenous. The spleen is normal in size. No so lid or cystic renal lesions are seen on images saved. Cannot exclude a 4 mm nonobstructing calculus u pper pole of the left kidney on ultrasound. IMPRESSION: No acute findings are evident.
--- NOTE | 2021-02-06 08:57 | US ---
EXAMINATION TYPE: US pelvic complete DATE OF EXAM: 02/06/2021 COMPARISON: US September 02, 2019. CT abdomen and pelvis February 18, 2019 CLINICAL HISTORY: R10.9 abd pain, R10.2 pelvic pain. Six months of abdominal pelvic pain; prior IUD p erforation in upper myometrium; with C section delivery x 2; IBS with current constipation; NUVA ring (thus limited menstrual cycles); tubal ligation TECHNIQUE: TV US was performed as bladder still not completely full after 30 minute wait period. Date of LMP: 2 months ago EXAM MEASUREMENTS: Uterus: 7.8 x 5.3 x 4.6 cm Endometrial Stripe: 1.4 cm Right Ovary: not seen as overlying bowel peristalsis and bowel gas is present Left Ovary: 2.4 x 2.0 x 1.5 cm 1. Uterus: anteverted; C section scar is noted with lobular periphery; hyperechoic focus noted in ZA S with fluid area = 0.5 x 0.7 x 0.2cm. 2. Endometrium: unable to correlate thickness with LMP every 2 months. 3. Right Ovary: not seen 4. Left Ovary: appears wnl; color flow is seen 5. Bilateral Adnexa: wnl 6. Posterior cul-de-sac: wnl Heterogeneous anteverted uterus redemonstrated. Anterior scar noted. In the lower uterine s egment there is a tiny amount of free fluid and tiny hyperechoic foci possible calcification. Endomet rium felt within normal limits for secretory phase of menstrual cycle. It is more likely near 11 to 1 2 mm versus 14 mm. No free fluid pelvic cul-de-sac. Left ovary normal in size. Right ovary not clearl y seen on current study. No concerning adnexal masses. IMPRESSION: No suspicious adnexal masses are noted. Normal or abnormal Right ovary not identified on current study.
== END | disposition home or self-care (01) ==
LOC: RADUSWWP 07:01
PROVIDERS: ATTEND Family Medicine
DX: K59.00 Constipation, unspecified (principal); R10.9 Unspecified abdominal pain; R10.2 Pelvic and perineal pain
CPT/HCPCS: 76700; 76830

== ENCOUNTER 2021-11-09 13:38 | Emergency (ER) | payer OTHER ==
[2021-11-09] MEDS ORDERED: SODIUM CHLORIDE 0.9% 1,000 ML IV STA (14:18)
[2021-11-09] MEDS ORDERED: METOCLOPRAMIDE 5 MG/ML 2 ML VIAL IVP STA (14:18)
--- NOTE | 2021-11-09 14:21 | ED ---
General Adult HPI - General Chief complaint: Upper Respiratory Infection Stated complaint: Covid+ Time Seen by Provider: 11/09/21 13:55 Source: patient Mode of arrival: ambulatory Limitations: no limitations - History of Present Illness Initial comments: 40-year-old female presents to the emergency room for a chief complaint of not feeling well. Patient states she has had COVID-19 for 7 days now. Patient states she tested positive on 11/05/2021. Patient states yesterday she started nausea vomiting diarrhea. States she is prescribed Zofran but it doesn't seem to help. Patient states she would like an IV performed.Patient has no other complaints at this time including shortness of breath, chest pain, abdominal pain, headache, or visual changes. - Related Data Home Medications Medication Instructions Recorded Confirmed clonazePAM [KlonoPIN] 1 mg PO BID 05/17/14 11/09/21 Ibuprofen [Motrin] 800 mg PO Q6H PRN 02/17/19 11/09/21 FLUoxetine HCL [Sarafem] 60 mg PO DAILY 01/30/21 11/09/21 Etonogestrel/Ethinyl Estradiol 1 vag ring VAGINAL Q28D 11/09/21 11/09/21 [Nuvaring Vaginal Ring] Ondansetron Odt [Zofran Odt] 8 mg PO Q8H PRN 11/09/21 11/09/21 Rimegepant Sulfate [Nurtec Odt] 75 mg PO DAILY PRN 11/09/21 11/09/21 Rizatriptan Odt [[employer]] 10 mg PO DAILY PRN 11/09/21 11/09/21 Previous Rx's Medication Instructions Recorded Benzonatate [Tessalon Perles] 200 mg PO Q8H PRN #15 capsule 11/09/21 Metoclopramide HCl [Reglan] 10 mg PO Q8H PRN #15 tablet 11/09/21 Allergies Allergy/AdvReac Type Severity Reaction Status Date / Time codeine Allergy Dyspnea Verified 11/09/21 15:46 fexofenadine HCl Allergy Dyspnea Verified 11/09/21 15:46 [From Janett] ketorolac tromethamine Allergy Unknown Verified 11/09/21 15:46 [From Toradol] cyclobenzaprine AdvReac Rapid Verified 11/09/21 15:46 [From Flexeril] Heart Rate diphenhydramine AdvReac Anxiety Verified 11/09/21 15:46 [From Benadryl] Review of Systems ROS Statement: Those systems with pertinent positive or pertinent negative responses have been documented in the HPI. ROS Other: All systems not noted in ROS Statement are negative. Past Medical History Past Medical History: Fibromyalgia Additional Past Medical History / Comment(s): migraines, nerve damage, chronic back and neck pain, ovarian cyst. History of Any Multi-Drug Resistant Organisms: None Reported Past Surgical History: Back Surgery Additional Past Surgical History / Comment(s): acdf surgery (neck surgery) Past Anesthesia/Blood Transfusion Reactions: No Reported Reaction Past Psychological History: Anxiety, Panic Disorder Past Alcohol Use History: Occasional Past Drug Use History: None Reported General Exam Limitations: no limitations General appearance: alert, in no apparent distress Head exam: Present: atraumatic Eye exam: Present: normal appearance, PERRL, EOMI. Absent: scleral icterus, conjunctival injection ENT exam: Present: normal exam, mucous membranes moist Neck exam: Present: normal inspection, full ROM. Absent: tenderness Respiratory exam: Present: normal lung sounds bilaterally. Absent: respiratory distress, wheezes Cardiovascular Exam: Present: regular rate, normal rhythm, normal heart sounds Course Vital Signs 11/09/21 13:45 Temperature 98.0 F Pulse Rate 86 Respiratory 20 Rate Blood Pressure 108/66 O2 Sat by Pulse 97 Oximetry Medical Decision Making - Medical Decision Making Vitals are stable. Patient is well-appearing. CBC and CMP are unremarkable. Patient does not qualify for antibody infusion given we are currently using priority criteria for this. Patient will be discharged home with supportive medications. - Lab Data Result diagrams: 11/09/21 14:37 11/09/21 14:37 Lab Results 11/09/21 11/09/21 Range/Units 14:37 14:37 WBC 6.7 (3.8-10.6) k/uL RBC 4.16 (3.80-5.40) m/uL Hgb 12.9 (11.4-16.0) gm/dL Hct 38.8 (34.0-46.0) % MCV 93.2 (80.0-100.0) fL MCH 31.0 (25.0-35.0) pg MCHC 33.2 (31.0-37.0) g/dL RDW 11.9 (11.5-15.5) % Plt Count 251 (150-450) k/uL MPV 7.1 Neutrophils % 60 % Lymphocytes % 32 % Monocytes % 4 % Eosinophils % 3 % Basophils % 1 % Neutrophils # 4.0 (1.3-7.7) k/uL Lymphocytes # 2.1 (1.0-4.8) k/uL Monocytes # 0.3 (0-1.0) k/uL Eosinophils # 0.2 (0-0.7) k/uL Basophils # 0.0 (0-0.2) k/uL Sodium 137 (137-145) mmol/L Potassium 4.2 (3.5-5.1) mmol/L Chloride 109 H (98-107) mmol/L Carbon Dioxide 21 L (22-30) mmol/L Anion Gap 7 mmol/L BUN 13 (7-17) mg/dL Creatinine 0.71 (0.52-1.04) mg/dL Est GFR (CKD-EPI)AfAm >90 (>60 ml/min/1.73 sqM) Est GFR (CKD-EPI)NonAf >90 (>60 ml/min/1.73 sqM) Glucose 96 (74-99) mg/dL Calcium 9.1 (8.4-10.2) mg/dL Disposition Clinical Impression: COVID-19 Disposition: HOME SELF-CARE Condition: Good Instructions (If sedation given, give patient instructions): Coronavirus Disease 2019 (COVID-19) Additional Instructions: Please take medication as directed. Take Motrin and Tylenol for pain or fever. Take vitamin C and zinc [id number]. Return to the emergency room for any worsening symptoms. Prescriptions: Metoclopramide HCl [Reglan] 10 mg PO Q8H PRN #15 tablet PRN Reason: nausea Benzonatate [Tessalon Perles] 200 mg PO Q8H PRN #15 capsule PRN Reason: Cough Is patient prescribed a controlled substance at d/c from ED?: No Referrals: Gregor Rubio MD [Primary Care Provider] - 1-2 days Time of Disposition: 16:09
[2021-11-09 14:52] LABS: Sodium 137 mmol/L (137-145)
[2021-11-09 14:55] LABS: African American GFR (CKD) >90 (>60 ml/min/1.73 sqM); Anion Gap 7 mmol/L; Blood Urea Nitrogen 13 mg/dL (7-17); Calcium 9.1 mg/dL (8.4-10.2); Carbon Dioxide 21 mmol/L (22-30); Chloride 109 mmol/L (98-107); Glucose 96 mg/dL (74-99); Non-African American GFR(CKD) >90 (>60 ml/min/1.73 sqM); Potassium 4.2 mmol/L (3.5-5.1)
[2021-11-09 15:36] LABS: Basophils % (A) 1 %; Eosinophils # (A) 0.2 k/uL (0-0.7); Eosinophils % (A) 3 %; HCT 38.8 % (34.0-46.0); HGB 12.9 gm/dL (11.4-16.0); Lymphocytes # (A) 2.1 k/uL (1.0-4.8); Lymphocytes % (A) 32 %; MCHC 33.2 g/dL (31.0-37.0); MCV 93.2 fL (80.0-100.0); Mean Platelet Volume 7.1; Monocytes # (A) 0.3 k/uL (0-1.0); Monocytes % (A) 4 %; Neutrophils % (A) 60 %; Platelet Count 251 k/uL (150-450); RBC 4.16 m/uL (3.80-5.40); RDW 11.9 % (11.5-15.5); WBC 6.7 k/uL (3.8-10.6)
[2021-11-09 16:29] VITALS: BP 96/63; PULSE 74; RESP 18; TEMP 97.6
== END 2021-11-09 16:29 | disposition home or self-care (01) ==
LOC: EC 13:38
DX: U07.1 COVID-19 (principal); M79.7 Fibromyalgia; F41.9 Anxiety disorder, unspecified; Z88.5 Allergy status to narcotic agent; Z88.1 Allergy status to other antibiotic agents
CPT/HCPCS: 99284; 96374; 96361 ×2; 36415; 80048; 85025; J2765

== ENCOUNTER 2022-05-04 20:21 | Emergency (ER) | payer OTHER ==
[2022-05-04 20:32] VITALS: BP 102/65; PULSE 97; RESP 16; TEMP 97.7
[2022-05-04] MEDS ORDERED: HYDROmorphone 0.5 MG/0.5 ML SYRINGE IVP STA ×2 (20:48→22:44)
[2022-05-04] MEDS ORDERED: SODIUM CHLORIDE 0.9% 1,000 ML IV STA (20:48)
[2022-05-04] MEDS ORDERED: ONDANSETRON 4 MG/2 ML VIAL IVP STA (20:48)
[2022-05-04] MEDS ORDERED: PANTOPRAZOLE 40 MG/10 ML VIAL IVP STA (20:48)
--- NOTE | 2022-05-04 21:30 | ED ---
General Adult HPI - General Chief complaint: Abdominal Pain Stated complaint: Abd Pain/Worse on lt side Time Seen by Provider: 05/04/22 20:37 Source: patient, RN notes reviewed, old records reviewed Mode of arrival: ambulatory Limitations: no limitations - History of Present Illness Initial comments: 41-year-old female with left-sided abdominal pain. Pain is been present for the past 2 days. Associated with nausea. No reported fever. No vomiting. She states she's having normal bowel movements. She states she is currently just finishing her menstrual cycle. No dysuria or hematuria. Pain does wrap around to the flank and lower abdomen. - Related Data Home Medications Medication Instructions Recorded Confirmed clonazePAM [KlonoPIN] 1 mg PO BID 05/17/14 11/09/21 Ibuprofen [Motrin] 800 mg PO Q6H PRN 02/17/19 11/09/21 FLUoxetine HCL [Sarafem] 60 mg PO DAILY 01/30/21 11/09/21 Etonogestrel/Ethinyl Estradiol 1 vag ring VAGINAL Q28D 11/09/21 11/09/21 [Nuvaring Vaginal Ring] Ondansetron Odt [Zofran Odt] 8 mg PO Q8H PRN 11/09/21 11/09/21 Rimegepant Sulfate [Nurtec Odt] 75 mg PO DAILY PRN 11/09/21 11/09/21 Rizatriptan Odt [Maxalt Senior Foreman] 10 mg PO DAILY PRN 11/09/21 11/09/21 Previous Rx's Medication Instructions Recorded Benzonatate [Tessalon Perles] 200 mg PO Q8H PRN #15 capsule 11/09/21 Metoclopramide HCl [Reglan] 10 mg PO Q8H PRN #15 tablet 11/09/21 Omeprazole [PriLOSEC] 20 mg PO AC-BID 30 Days #60 cap 05/04/22 Allergies Allergy/AdvReac Type Severity Reaction Status Date / Time codeine Allergy Dyspnea Verified 05/04/22 20:31 fexofenadine HCl Allergy Dyspnea Verified 05/04/22 20:31 [From Janett] ketorolac tromethamine Allergy Unknown Verified 05/04/22 20:31 [From Toradol] cyclobenzaprine AdvReac Rapid Verified 05/04/22 20:31 [From Flexeril] Heart Rate diphenhydramine AdvReac Anxiety Verified 05/04/22 20:31 [From Benadryl] Review of Systems ROS Statement: Those systems with pertinent positive or pertinent negative responses have been documented in the HPI. ROS Other: All systems not noted in ROS Statement are negative. Past Medical History Past Medical History: Fibromyalgia Additional Past Medical History / Comment(s): migraines, nerve damage, chronic back and neck pain, ovarian cyst. History of Any Multi-Drug Resistant Organisms: None Reported Past Surgical History: Back Surgery Additional Past Surgical History / Comment(s): acdf surgery (neck surgery) Past Anesthesia/Blood Transfusion Reactions: No Reported Reaction Past Psychological History: Anxiety, Panic Disorder Past Alcohol Use History: Occasional Past Drug Use History: None Reported General Exam Limitations: no limitations General appearance: alert, in no apparent distress Head exam: Present: atraumatic, normocephalic Eye exam: Present: normal appearance, PERRL Neck exam: Present: normal inspection. Absent: tenderness, meningismus Respiratory exam: Present: normal lung sounds bilaterally. Absent: respiratory distress, wheezes Cardiovascular Exam: Present: regular rate, normal rhythm GI/Abdominal exam: Present: soft, tenderness (Left upper quadrant), guarding. Absent: distended, rebound Extremities exam: Present: normal inspection, normal capillary refill. Absent: pedal edema, calf tenderness Neurological exam: Present: alert, oriented X3, CN II-XII intact. Absent: motor sensory deficit Psychiatric exam: Present: normal affect, normal mood Skin exam: Present: warm, dry, intact. Absent: cyanosis, diaphoretic Course Vital Signs 05/04/22 20:31 Temperature 97.7 F Pulse Rate 97 Respiratory 16 Rate Blood Pressure 102/65 O2 Sat by Pulse 97 Oximetry Medical Decision Making - Medical Decision Making 41-year-old female with left-sided abdominal pain. She does have some associated flank pain. She has abdominal tenderness on exam. Vital signs are stable. Workup is initiated, normal CBC, normal CMP, urinalysis showing some red cells although the patient states she just finished her menstrual cycle. Given the persistent pain and hematuria I did perform a CT to ensure there was no acute pathology or renal pathology. This is essentially negative. Patient should continue to follow with her primary care physician and return with worsening or changing symptoms. - Lab Data Result diagrams: 05/04/22 20:54 05/04/22 20:54 Lab Results 05/04/22 05/04/22 05/04/22 Range/Units 20:54 20:54 20:54 WBC 4.1 (3.8-10.6) k/uL RBC 4.22 (3.80-5.40) m/uL Hgb 12.9 (11.4-16.0) gm/dL Hct 38.9 (34.0-46.0) % MCV 92.4 (80.0-100.0) fL MCH 30.6 (25.0-35.0) pg MCHC 33.2 (31.0-37.0) g/dL RDW 12.4 (11.5-15.5) % Plt Count 247 (150-450) k/uL MPV 7.0 Neutrophils % 48 % Lymphocytes % 34 % Monocytes % 9 % Eosinophils % 5 % Basophils % 3 % Neutrophils # 2.0 (1.3-7.7) k/uL Lymphocytes # 1.4 (1.0-4.8) k/uL Monocytes # 0.4 (0-1.0) k/uL Eosinophils # 0.2 (0-0.7) k/uL Basophils # 0.1 (0-0.2) k/uL PT 11.0 (9.0-12.0) sec INR 1.0 (<1.2) APTT 25.3 (22.0-30.0) sec Sodium (137-145) mmol/L Potassium (3.5-5.1) mmol/L Chloride (98-107) mmol/L Carbon Dioxide (22-30) mmol/L Anion Gap mmol/L BUN (7-17) mg/dL Creatinine (0.52-1.04) mg/dL Est GFR (CKD-EPI)AfAm (>60 ml/min/1.73 sqM) Est GFR (CKD-EPI)NonAf (>60 ml/min/1.73 sqM) Glucose (74-99) mg/dL Plasma Lactic Acid Robert (0.7-2.0) mmol/L Calcium (8.4-10.2) mg/dL Total Bilirubin (0.2-1.3) mg/dL AST (14-36) U/L ALT (4-34) U/L Alkaline Phosphatase (38-126) U/L Total Protein (6.3-8.2) g/dL Albumin (3.5-5.0) g/dL Amylase (30-110) U/L Lipase (23-300) U/L Urine Color Yellow Urine Appearance Cloudy H (Clear) Urine pH 6.0 (5.0-8.0) Ur Specific [place] 1.036 H (1.001-1.035) Urine Protein 1+ H (Negative) Urine Glucose (UA) Negative (Negative) Urine Ketones 1+ H (Negative) Urine Blood Small H (Negative) Urine Nitrite Negative (Negative) Urine Bilirubin Negative (Negative) Urine Urobilinogen 3.0 (<2.0) mg/dL Ur Leukocyte Esterase Negative (Negative) Urine RBC 23 H (0-5) /hpf Urine WBC 1 (0-5) /hpf Ur Squamous Epith Cells 22 H (0-4) /hpf Urine Mucus Many H (None) /hpf Urine HCG, Qual (Not Detectd) 05/04/22 05/04/22 05/04/22 Range/Units 20:54 20:54 22:04 WBC (3.8-10.6) k/uL RBC (3.80-5.40) m/uL Hgb (11.4-16.0) gm/dL Hct (34.0-46.0) % MCV (80.0-100.0) fL MCH (25.0-35.0) pg MCHC (31.0-37.0) g/dL RDW (11.5-15.5) % Plt Count (150-450) k/uL MPV Neutrophils % % Lymphocytes % % Monocytes % % Eosinophils % % Basophils % % Neutrophils # (1.3-7.7) k/uL Lymphocytes # (1.0-4.8) k/uL Monocytes # (0-1.0) k/uL Eosinophils # (0-0.7) k/uL Basophils # (0-0.2) k/uL PT (9.0-12.0) sec INR (<1.2) APTT (22.0-30.0) sec Sodium 135 L (137-145) mmol/L Potassium 4.0 (3.5-5.1) mmol/L Chloride 106 (98-107) mmol/L Carbon Dioxide 24 (22-30) mmol/L Anion Gap 5 mmol/L BUN 15 (7-17) mg/dL Creatinine 0.76 (0.52-1.04) mg/dL Est GFR (CKD-EPI)AfAm >90 (>60 ml/min/1.73 sqM) Est GFR (CKD-EPI)NonAf >90 (>60 ml/min/1.73 sqM) Glucose 90 (74-99) mg/dL Plasma Lactic Acid Robert <0.5 L (0.7-2.0) mmol/L Calcium 8.8 (8.4-10.2) mg/dL Total Bilirubin 0.2 (0.2-1.3) mg/dL AST 28 (14-36) U/L ALT 21 (4-34) U/L Alkaline Phosphatase 56 (38-126) U/L Total Protein 6.5 (6.3-8.2) g/dL Albumin 3.9 (3.5-5.0) g/dL Amylase 52 (30-110) U/L Lipase 68 (23-300) U/L Urine Color Urine Appearance (Clear) Urine pH (5.0-8.0) Ur Specific [place] (1.001-1.035) Urine Protein (Negative) Urine Glucose (UA) (Negative) Urine Ketones (Negative) Urine Blood (Negative) Urine Nitrite (Negative) Urine Bilirubin (Negative) Urine Urobilinogen (<2.0) mg/dL Ur Leukocyte Esterase (Negative) Urine RBC (0-5) /hpf Urine WBC (0-5) /hpf Ur Squamous Epith Cells (0-4) /hpf Urine Mucus (None) /hpf Urine HCG, Qual Not Detected (Not Detectd) Disposition Clinical Impression: Abdominal pain Disposition: HOME SELF-CARE Condition: Fair Instructions (If sedation given, give patient instructions): Abdominal Pain (ED) Prescriptions: Omeprazole [PriLOSEC] 20 mg PO AC-BID 30 Days #60 cap Is patient prescribed a controlled substance at d/c from ED?: No Referrals: Gregor Rubio MD [Primary Care Provider] - 1-2 days Ioana Murcia MD [STAFF PHYSICIAN] - 1-2 days Time of Disposition: 22:39
[2022-05-04 21:33] LABS: Basophils # (A) 0.1 k/uL (0-0.2); Basophils % (A) 3 %; Eosinophils # (A) 0.2 k/uL (0-0.7); Eosinophils % (A) 5 %; HCT 38.9 % (34.0-46.0); HGB 12.9 gm/dL (11.4-16.0); Lymphocytes # (A) 1.4 k/uL (1.0-4.8); Lymphocytes % (A) 34 %; MCH 30.6 pg (25.0-35.0); MCHC 33.2 g/dL (31.0-37.0); MCV 92.4 fL (80.0-100.0); Monocytes # (A) 0.4 k/uL (0-1.0); Monocytes % (A) 9 %; Neutrophils % (A) 48 %; Platelet Count 247 k/uL (150-450); RBC 4.22 m/uL (3.80-5.40); RDW 12.4 % (11.5-15.5); WBC 4.1 k/uL (3.8-10.6)
[2022-05-04 21:37] LABS: Appearance,Urine Cloudy (Clear); Bilirubin,Urine Negative (Negative); Blood,Urine Small (Negative); Color,Urine Yellow; Glucose,Urine (UA) Negative (Negative); Ketones,Urine 1+ (Negative); Leukocyte Esterase,Urine Negative (Negative); Mucus,Urine Many /hpf; Nitrite,Urine Negative (Negative); Protein,Urine 1+ (Negative); RBC,Urine 23 /hpf (0-5); Specific Gravity,Urine 1.036 (1.001-1.035); Squamous Epithelial Cell,Urine 22 /hpf (0-4); WBC,Urine 1 /hpf (0-5)
[2022-05-04 21:46] LABS: Partial Thromboplastin Time 25.3 sec (22.0-30.0)
[2022-05-04 22:09] LABS: ALT 21 U/L (4-34); AST 28 U/L (14-36); African American GFR (CKD) >90 (>60 ml/min/1.73 sqM); Albumin 3.9 g/dL (3.5-5.0); Alkaline Phosphatase 56 U/L (38-126); Amylase 52 U/L (30-110); Anion Gap 5 mmol/L; Blood Urea Nitrogen 15 mg/dL (7-17); Calcium 8.8 mg/dL (8.4-10.2); Carbon Dioxide 24 mmol/L (22-30); Chloride 106 mmol/L (98-107); Glucose 90 mg/dL (74-99); Lipase 68 U/L (23-300); Non-African American GFR(CKD) >90 (>60 ml/min/1.73 sqM); Sodium 135 mmol/L (137-145); Total Bilirubin 0.2 mg/dL (0.2-1.3); Total Protein 6.5 g/dL (6.3-8.2)
--- NOTE | 2022-05-04 22:35 | CT ---
EXAMINATION TYPE: CT abdomen pelvis wo con DATE OF EXAM: 05/04/2022 COMPARISON: 02/18/2019 HISTORY: LUQ Pain CT DLP: 381.1 mGycm Automated exposure control for dose reduction was used. Images obtained from the diaphragm to the floor the pelvis with no contrast. There is mild bilateral pleural effusions. There is subsegmental atelectasis at the lung bases. Heart size is normal. No pericardial effusion. Liver spleen stomach pancreas and gallbladder appear intact . Bowel is not dilated. There is no adrenal mass. Kidneys have normal size. No hydronephrosis. Ureters are not dilated. Appen ayla is posterior and appears normal. The bladder distends smoothly. Uterus is anteverted. There are c lips from tubal ligation. No inguinal hernia. No free fluid in the pelvis. No evidence of a pelvic ma ss. No mesenteric edema. No ascites or free air. No bowel obstruction. The lumbar vertebrae have normal alignment. No compression fracture. The bony pelvis is intact. The h ip joints are intact. IMPRESSION: There is some mild atelectasis at the lung bases. Small pleural effusions. This appears new compared to old exam. Normal heart. Normal appendix. No acute abnormality within the abdomen and pelvis.
[2022-05-04] MEDS ORDERED: KETOROLAC 15 MG/ML 1 ML VIAL IVP STA (22:45)
== END 2022-05-04 23:26 | disposition home or self-care (01) ==
LOC: EC 20:21
DX: R10.12 Left upper quadrant pain (principal); M79.7 Fibromyalgia; F41.9 Anxiety disorder, unspecified; Z79.899 Other long term (current) drug therapy
CPT/HCPCS: 36415; 80053; 82150; 83605; 83690; 85025; 85610; 85730; 81001; 81025; 74176; 99284; 96374; 96375 ×3; 96376; 96361; J2405; J1885; C9113; J1170

== ENCOUNTER 2022-09-09 11:14 | Emergency (ER) | payer OTHER ==
[2022-09-09 11:30] VITALS: BP 98/63; PULSE 77; RESP 18; TEMP 97.7
--- NOTE | 2022-09-09 12:25 | ED ---
URI HPI - General Chief Complaint: Upper Respiratory Infection Stated Complaint: RSV exposure, cough Time Seen by Provider: 09/09/22 12:14 Source: patient, RN notes reviewed Mode of arrival: ambulatory Limitations: no limitations - History of Present Illness Initial Comments: Patient is a 41-year-old female presenting to the emergency room with complaints of cough and congestion that has been slowly starting over the last 48 hours. Her daughter was diagnosed with RSV on September 04 and her nephew also was diagnosed with the illness both of whom she has been around readily. She is complaining of generalized malaise with cough, congestion and airway burning. She is unsure of fevers. She denies any chest pain, shortness of breath, abdominal pain, nausea, vomiting, diarrhea, dizziness or chills. She has a past medical history significant fibromyalgia, migraines, chronic back and neck pain and ovarian cyst. - Related Data Home Medications Medication Instructions Recorded Confirmed clonazePAM [KlonoPIN] 1 mg PO BID 05/17/14 11/09/21 Ibuprofen [Motrin] 800 mg PO Q6H PRN 02/17/19 11/09/21 FLUoxetine HCL [Sarafem] 60 mg PO DAILY 01/30/21 11/09/21 Etonogestrel/Ethinyl Estradiol 1 vag ring VAGINAL Q28D 11/09/21 11/09/21 [Nuvaring Vaginal Ring] Ondansetron Odt [Zofran Odt] 8 mg PO Q8H PRN 11/09/21 11/09/21 Rimegepant Sulfate [Nurtec Odt] 75 mg PO DAILY PRN 11/09/21 11/09/21 Rizatriptan Odt [Maxalt Hotel Concierge] 10 mg PO DAILY PRN 11/09/21 11/09/21 Previous Rx's Medication Instructions Recorded Benzonatate [Tessalon Perles] 200 mg PO Q8H PRN #15 capsule 11/09/21 Metoclopramide HCl [Reglan] 10 mg PO Q8H PRN #15 tablet 11/09/21 Omeprazole [PriLOSEC] 20 mg PO AC-BID 30 Days #60 cap 05/04/22 Allergies Allergy/AdvReac Type Severity Reaction Status Date / Time codeine Allergy Dyspnea Verified 09/09/22 11:30 fexofenadine HCl Allergy Dyspnea Verified 09/09/22 11:30 [From Janett] ketorolac tromethamine Allergy Unknown Verified 09/09/22 11:30 [From Toradol] cyclobenzaprine AdvReac Rapid Verified 09/09/22 11:30 [From Flexeril] Heart Rate diphenhydramine AdvReac Anxiety Verified 09/09/22 11:30 [From Benadryl] Review of Systems ROS Statement: Those systems with pertinent positive or pertinent negative responses have been documented in the HPI. ROS Other: All systems not noted in ROS Statement are negative. Past Medical History Past Medical History: Fibromyalgia Additional Past Medical History / Comment(s): migraines, nerve damage, chronic b ack and neck pain, ovarian cyst. History of Any Multi-Drug Resistant Organisms: None Reported Past Surgical History: Back Surgery Additional Past Surgical History / Comment(s): acdf surgery (neck surgery) Past Anesthesia/Blood Transfusion Reactions: No Reported Reaction Past Psychological History: Anxiety, Panic Disorder Smoking Status: Never smoker Past Alcohol Use History: Occasional Past Drug Use History: None Reported General Exam General appearance: alert, in no apparent distress Head exam: Present: atraumatic, normocephalic, normal inspection Eye exam: Present: normal appearance, PERRL, EOMI. Absent: scleral icterus, conjunctival injection, periorbital swelling ENT exam: Present: mucous membranes moist, TM's normal bilaterally, normal external ear exam, other (Bilateral nares with erythema and edema but patent.) Neck exam: Present: normal inspection, tenderness, full ROM, lymphadenopathy (Shotty) Respiratory exam: Present: normal lung sounds bilaterally. Absent: respiratory distress, wheezes, rales, rhonchi, stridor Cardiovascular Exam: Present: regular rate, normal rhythm, normal heart sounds. Absent: systolic murmur, diastolic murmur, rubs, gallop, clicks GI/Abdominal exam: Present: soft, normal bowel sounds. Absent: distended, tenderness, guarding, rebound, rigid Extremities exam: Present: normal inspection. Absent: pedal edema, joint swelling Back exam: Present: normal inspection Neurological exam: Present: alert, oriented X3, CN II-XII intact Psychiatric exam: Present: normal affect, normal mood Skin exam: Present: warm, dry, intact, normal color. Absent: rash Course Vital Signs 09/09/22 11:27 Temperature 97.7 F Pulse Rate 77 Respiratory 18 Rate Blood Pressure 98/63 O2 Sat by Pulse 98 Oximetry Medical Decision Making - Medical Decision Making 41-year-old female presenting with complaints of generalized malaise, cough and congestion getting progressively worse over the last 48 hours with known exposure to RSV. Currently afebrile without any tachycardia or hypoxemia. High probability for RSV or other viral process. Per patient request will obtain cephid swabs. No indication for further laboratory studies or diagnostic imaging. No indication for antibiotics, nebulized treatments, steroids or supplemental oxygen. Will monitor. RSV positive, Covid and influenza negative. No indication for further laboratory studies for diagnostic imaging. Will discharge mother home in stable condition. Advised restrictions for communicable diseases. Encouraged good hydration. Advised use of [id number] Tylenol or Motrin as needed for pain and fevers. Advise [id number] decongestants and cough suppressants as needed for cough and congestion. Case discussed with Dr. Aggarwal - Lab Data Lab Results 09/09/22 Range/Units 12:48 Influenza Type A (PCR) Not Detected (Not Detectd) Influenza Type B (PCR) Not Detected (Not Detectd) RSV (PCR) Detected A (Not Detectd) SARS-CoV-2 (PCR) Not Detected (Not Detectd) Disposition Clinical Impression: RSV infection Disposition: HOME SELF-CARE Condition: Stable Instructions (If sedation given, give patient instructions): Respiratory Syncytial Virus (ED), Upper Respiratory Infection (ED) Additional Instructions: Please utilize [id number] Tylenol or Motrin as needed for pain fevers. May utilize decongestants and cough suppressants [id number] as needed for congestion and cough. May return to work/school after 24 hours fever free without the use of fever reducing agents. Please follow-up with your primary care provider. Please return to the Emergency Department if symptoms worsen or any other concerns. Is patient prescribed a controlled substance at d/c from ED?: No Referrals: Gregor Rubio MD [Primary Care Provider] - 1-2 days Time of Disposition: 14:12
== END 2022-09-09 14:23 | disposition home or self-care (01) ==
LOC: EC 11:14
DX: R05.9 Cough, unspecified (principal); B97.4 Respiratory syncytial virus as the cause of diseases classified elsewhere; F41.9 Anxiety disorder, unspecified; Z20.822 Contact with and (suspected) exposure to COVID-19; Z79.899 Other long term (current) drug therapy; Z88.5 Allergy status to narcotic agent; Z88.9 Allergy status to unspecified drugs, medicaments and biological substances; Z88.6 Allergy status to analgesic agent; Z88.8 Allergy status to other drugs, medicaments and biological substances
CPT/HCPCS: 87636; 99283

== ENCOUNTER → 2022-11-23 | Outpatient (CLI) | payer OTHER ==
--- NOTE | 2022-11-26 08:31 | MM ---
Reason for Exam: Screening (asymptomatic). Last mammogram was performed 3 year(s) and 0 month(s) ago. Patient History: Menarche at age 13. First Full-Term at age 35. Late child-bearing (after 30). Premenopausal. Currently using Hormonal Contraceptives. 11/25/2019, Benign Core Biopsy on the left side. Last menstrual period: 09/27/2022 Risk Values: Zoey 5 year model risk: 1.2%. NCI Lifetime model risk: 18.0%. Prior Study Comparison: 11/04/2019 Bilateral Screening Mammogram, [facility]. 11/17/2019 Bilateral Diagnostic Mammogram, [facility]. Tissue Density: The breast tissue is heterogeneously dense. This may lower the sensitivity of mammography. Findings: Analyzed By CAD. No suspicious calcifications within either breast. There are 2 asymmetries demonstrated within the right breast at middle to posterior depth in the central right breast and medial right breast on CC view only. Redemonstration of a mass within the left lower inner quadrant of the left breast middle depth with adjacent biopsy clip. Overall Assessment: Incomplete: need additional imaging evaluation, BI-RAD 0 Management: Diagnostic Mammogram of the right breast. A clinical breast exam by your physician is recommended on an annual basis and results should be correlated with mammographic findings. [facility] will attempt to contact patient to return for supplemental views and ultrasound if indicated. Electronically signed and approved by: Israel Vance D.O.
== END | disposition home or self-care (01) ==
LOC: RADMAMWWP 09:39
PROVIDERS: ATTEND Family Medicine
DX: Z12.31 Encounter for screening mammogram for malignant neoplasm of breast (principal)
CPT/HCPCS: 77067

== ENCOUNTER → 2022-11-27 | Outpatient (CLI) | payer OTHER ==
--- NOTE | 2022-11-27 11:20 | MM ---
Reason for Exam: Additional evaluation requested from abnormal screening. Last screening mammogram was performed less than 1 month ago. Patient History: Menarche at age 13. First Full-Term at age 35. Late child-bearing (after 30). Premenopausal. Currently using Hormonal Contraceptives. 11/25/2019, Benign Core Biopsy on the left side. Risk Values: Zoey 5 year model risk: 1.2%. NCI Lifetime model risk: 18.0%. Prior Study Comparison: 11/04/2019 Bilateral Screening Mammogram, [facility]. 11/17/2019 Bilateral Diagnostic Mammogram, [facility]. 11/23/2022 Bilateral MG screening mammo w CAD, [facility]. Tissue Density: Right: The breast tissue is heterogeneously dense. This may lower the sensitivity of mammography. Findings: Analyzed By CAD. Right medial 5 mm lesion approximately 3.5 cm from the nipple at middle depth on CC imaging. This is not clearly seen on MLO view. Right lateral 5 mm lesion approximately 5.2 cm from the nipple at middle depth on CT imaging. This is not clearly seen on MLO imaging. Overall Assessment: Incomplete: need additional imaging evaluation, BI-RAD 0 Management: Diagnostic Breast Ultrasound of the right breast. A clinical breast exam by your physician is recommended on an annual basis and results should be correlated with mammographic findings. This exam should not preclude additional follow-up of suspicious palpable abnormalities. Results were given to the patient verbally at the time of exam. Electronically signed and approved by: Rommel Costa DO
--- NOTE | 2022-11-27 11:46 | USB ---
Patient History: Menarche at age 13. First Full-Term at age 35. Late child-bearing (after 30). Premenopausal. Currently using Hormonal Contraceptives. 11/25/2019, Benign Core Biopsy on the left side. Risk Values: Zoey 5 year model risk: 1.2%. NCI Lifetime model risk: 18.0%. Technique: Method: Whole Breast Handheld. Prior Study Comparison: 11/04/2019 Bilateral Screening Mammogram, [facility]. 11/17/2019 Bilateral Diagnostic Mammogram, [facility]. 11/23/2022 Bilateral MG screening mammo w CAD, [facility]. Findings: The whole breast of the right breast, the axilla of the right breast and the retroareolar of the right breast were scanned. A complete US of all four quadrants of the breast and retro-areolar region were reviewed. * At 2:00 4 submitted images from nipple is a somewhat isoechoic to background fat lesion measuring 8 x 6 x 8 mm with no internal color Doppler flow. This finding is favored represent a lipoma. * At 3:00 4 cm from the nipple is a hypoechoic 5 x 2 x 5 mm lesion with suggestion of posterior acoustic and enhancement. No internal color Doppler flow. This is favored to represent a complicated cyst. * At 10:00 4 cm from nipple is a 5 x 3 x 5 mm lesion with somewhat ill-defined borders.A complete US of all four quadrants of the breast and retro-areolar region were reviewed. * At 2:00 4 cm from the nipple is a isoechoic to background fat lesion measuring 8 x 6 x 8 mm with no internal color Doppler flow. This finding is favored represent a lipoma. * At 3:00 4 cm from the nipple is a hypoechoic 5 x 2 x 5 mm lesion with suggestion of posterior acoustic and enhancement. No internal color Doppler flow. This is favored to represent a complicated cyst. * At 10:00 4 cm from nipple is a 5 x 3 x 5 mm lesion with somewhat ill-defined borders. Overall Assessment: Probably benign, BI-RAD 3 Management: Diagnostic Breast Ultrasound of the right breast in 6 months. Follow-up ultrasound for stability in 6 months. A clinical breast exam by your physician is recommended on an annual basis and results should be correlated with mammographic findings. This exam should not preclude additional follow-up of suspicious palpable abnormalities. Results were given to the patient verbally at the time of exam. Electronically signed and approved by: Rommel Costa DO
== END | disposition home or self-care (01) ==
LOC: RADMAMWWP 10:35
PROVIDERS: ATTEND Family Medicine
DX: R92.8 Other abnormal and inconclusive findings on diagnostic imaging of breast (principal)
CPT/HCPCS: 77065

== ENCOUNTER 2023-04-13 12:40 | Emergency (ER) | payer OTHER ==
[2023-04-13 13:11] VITALS: BP 136/76; PULSE 96; RESP 18; TEMP 98
[2023-04-13] MEDS ORDERED: SODIUM CHLORIDE 0.9% 500 ML 500 ML IV STA (13:36)
[2023-04-13] MEDS ORDERED: IBUPROFEN IV 600 MG in SODIUM CHLORIDE 0.9% 250 ML IV ONE (14:00)
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
== END 2023-04-13 15:50 | disposition home or self-care (01) ==
LOC: EC 12:40
DX: S16.1XXA Strain of muscle, fascia and tendon at neck level, initial encounter (principal); F41.9 Anxiety disorder, unspecified; Z79.899 Other long term (current) drug therapy; Z88.6 Allergy status to analgesic agent; Z88.8 Allergy status to other drugs, medicaments and biological substances; V43.52XA Car driver injured in collision with other type car in traffic accident, initial encounter
CPT/HCPCS: 72125; 70450; 99284; 96365; J1741

== ENCOUNTER 2023-12-22 18:59 | Emergency (ER) | payer OTHER ==
[2023-12-22] MEDS: KETOROLAC 15 MG/ML 1 ML VIAL IM STA (19:54)
--- NOTE | 2023-12-22 20:10 | ED ---
Back Pain HPI - General Chief Complaint: Back Pain/Injury Stated Complaint: back pain Time Seen by Provider: 12/22/23 20:08 Source: patient, RN notes reviewed Limitations: no limitations - History of Present Illness Initial Comments: Patient is a 43-year-old female presenting to ER with chief complaint of lumbar back pain. Patient states she twisted earlier today and has been experiencing excruciating back pain since. She states there is radiating pain down both legs. She states been extremely painful to walk. Denies any paresthesias, fevers, history of IV drug use, bowel or bladder incontinence, saddle paresthesias. She has taken [id number] ibuprofen without relief. Does have a history of cervical fusions and sees a chiropractor regularly. Denies any other complaints at this time. - Related Data Home Medications Medication Instructions Recorded Confirmed clonazePAM [KlonoPIN] 1 mg PO BID 05/17/14 11/09/21 Ibuprofen [Motrin] 800 mg PO Q6H PRN 02/17/19 11/09/21 FLUoxetine HCL [Sarafem] 60 mg PO DAILY 01/30/21 11/09/21 Etonogestrel/Ethinyl Estradiol 1 vag ring VAGINAL Q28D 11/09/21 11/09/21 [Nuvaring Vaginal Ring] Ondansetron Odt [Zofran Odt] 8 mg PO Q8H PRN 11/09/21 11/09/21 Rimegepant Sulfate [Nurtec Odt] 75 mg PO DAILY PRN 11/09/21 11/09/21 Rizatriptan Odt [Maxalt Linux Support Engineer] 10 mg PO DAILY PRN 11/09/21 11/09/21 Previous Rx's Medication Instructions Recorded Benzonatate [Tessalon Perles] 200 mg PO Q8H PRN #15 capsule 11/09/21 Metoclopramide HCl [Reglan] 10 mg PO Q8H PRN #15 tablet 11/09/21 Omeprazole [PriLOSEC] 20 mg PO AC-BID 30 Days #60 cap 05/04/22 predniSONE 50 mg PO DAILY #5 tab 12/22/23 Allergies Allergy/AdvReac Type Severity Reaction Status Date / Time codeine Allergy Dyspnea Verified 12/22/23 19:36 fexofenadine HCl Allergy Dyspnea Verified 12/22/23 19:36 [From Janett] ketorolac tromethamine Allergy Unknown Verified 12/22/23 19:36 [From Toradol] cyclobenzaprine AdvReac Rapid Verified 12/22/23 19:36 [From Flexeril] Heart Rate diphenhydramine AdvReac Anxiety Verified 12/22/23 19:36 [From Benadryl] Review of Systems ROS Statement: Those systems with pertinent positive or pertinent negative responses have been documented in the HPI. ROS Other: All systems not noted in ROS Statement are negative. Past Medical History Past Medical History: Fibromyalgia Additional Past Medical History / Comment(s): migraines, nerve damage, chronic back and neck pain, ovarian cyst. History of Any Multi-Drug Resistant Organisms: None Reported Past Surgical History: Back Surgery Additional Past Surgical History / Comment(s): acdf surgery (neck surgery) Past Anesthesia/Blood Transfusion Reactions: No Reported Reaction Past Psychological History: Anxiety, Panic Disorder Smoking Status: Never smoker Past Alcohol Use History: Occasional Past Drug Use History: None Reported General Exam Limitations: no limitations General appearance: alert, in no apparent distress Head exam: Present: atraumatic, normocephalic, normal inspection Neck exam: Present: normal inspection. Absent: tenderness, meningismus, lymphadenopathy Respiratory exam: Present: normal lung sounds bilaterally. Absent: respiratory distress, wheezes, rales, rhonchi, stridor Cardiovascular Exam: Present: regular rate, normal rhythm, normal heart sounds. Absent: systolic murmur, diastolic murmur, rubs, gallop, clicks Back exam: Present: tenderness (Tenderness to lumbar spine and pelvic girdle.), other (Pain with movement of left leg with associated weakness. Sensation intact. 2+ dorsalis pedis pulse bilaterally.) Neurological exam: Present: alert, oriented X3, CN II-XII intact Psychiatric exam: Present: normal affect, normal mood Skin exam: Present: warm, intact, normal color, diaphoretic (Mildly ). Absent: rash Course Vital Signs 12/22/23 12/22/23 19:34 21:38 Temperature 98 F 97.6 F Pulse Rate 103 H 89 Respiratory 20 18 Rate Blood Pressure 113/60 111/73 O2 Sat by Pulse 100 98 Oximetry Medical Decision Making - Medical Decision Making Was pt. sent in by a medical professional or institution (, PA, CONSTRUCTION SPECIALIST, urgent care, hospital, or custodial...) When possible be specific @ -No Did you speak to anyone other than the patient for history (EMS, parent, family, police, friend...)? What history was obtained from this source @ -No Did you review nursing and triage notes (agree or disagree)? Why? @ -I reviewed and agree with nursing and triage notes Were old charts reviewed (outside hosp., previous admission, EMS record, old EKG, old radiological studies, urgent care reports/EKG's, custodial records)? Report findings @ -No old charts were reviewed Differential Diagnosis (chest pain, altered mental status, abdominal pain women, abdominal pain men, vaginal bleeding, weakness, fever, dyspnea, syncope, headache, dizziness, GI bleed, back pain, seizure, CVA, palpatations, mental health, musculoskeletal)? @ -Differential Back Pain: Strain, zoster, cauda equina syndrome, epidural abscess, vertebral osteomyelitis, discitis, fracture, subluxation, disc herniation, DJD, spinal stenosis, dissection, AAA, pancreatitis, peptic ulcer disease, pyelonephritis, kidney stone, this is not meant to be an all-inclusive list. EKG interpreted by me (3pts min.). @ -None X-rays interpreted by me (1pt min.). @ -None done CT interpreted by me (1pt min.). @ -CT lumbar spine shows no evidence of spinal fracture. L4-L5 disc bulge with possible central and right central disc protrusion. Mild spinal canal stenosis and moderate neuroforaminal stenosis. U/S interpreted by me (1pt. min.). @ -None done What testing was considered but not performed or refused? (CT, X-rays, U/S, labs)? Why? @ -None What meds were considered but not given or refused? Why? @ -None Did you discuss the management of the patient with other professionals (professionals i.e. , PA, CONSTRUCTION SPECIALIST, lab, RT, psych nurse, neonatal social worker, technical expert, teacher, crime prevention police officer, disability case manager)? Give summary @ -No Was smoking cessation discussed for >3mins.? @ -No Was critical care preformed (if so, how long)? @ -No Were there social determinants of health that impacted care today? How? (Homelessness, low income, unemployed, alcoholism, drug addiction, transportation, low edu. Level, literacy, decrease access to med. care, longterm, rehab)? @ -No Was there de-escalation of care discussed even if they declined (Discuss DNR or withdrawal of care, Hospice)? DNR status @ -No What co-morbidities impacted this encounter? (DM, HTN, Smoking, COPD, CAD, Cancer, CVA, ARF, Chemo, Hep., AIDS, mental health diagnosis, sleep apnea, morbid obesity)? @ -None Was patient admitted / discharged? Hospital course, mention meds given and route, prescriptions, significant lab abnormalities, going to OR and other p ertinent info. @ -Discharge. Patient is a 43-year-old female presenting to ER with chief complaint of lower back pain. History and physical exam completed. Vitals stable. Patient no signs of acute distress. Patient was visibly in pain. No red flag back pain symptoms indicative of cauda equina syndrome. CT lumbar spine shows no evidence of spinal fracture. L4-L5 disc bulge with possible ce ntral and right central disc protrusion. Mild spinal canal stenosis and moderate neuroforaminal stenosis. Patient received IM Toradol without improvement of pain. Patient received IM Dilaudid with mild improvement of her pain. I discussed results with patient, all questions answered. Patient prescribed prednisone. Advised her to follow-up with orthopedic mirror specialist soon as possible for further evaluation. Return parameters were discussed. Patient be discharged stable condition with follow-up to orthopedics/PCP. Patient expressed understanding and agreement with care plan. Case discussed with Dr. Brantley, ER attending. Undiagnosed new problem with uncertain prognosis? @ -No Drug Therapy requiring intensive monitoring for toxicity (Heparin, Nitro, Insulin, Cardizem)? @ -No Were any procedures done? @ -No Diagnosis/symptom? @ -Bulging of intervertebral disc at L4-L5 Acute, or Chronic, or Acute on Chronic? @ -Acute Uncomplicated (without systemic symptoms) or Complicated (systemic symptoms)? @ -Uncomplicated Side effects of treatment? @ -No Exacerbation, Progression, or Severe Exacerbation? @ -No Poses a threat to life or bodily function? How? (Chest pain, [place], NH, pneumonia, PE, COPD, DKA, ARF, appy, cholecystitis, CVA, Diverticulitis, Homicidal, Suicidal, threat to staff... and all critical care pts) @ -No - Radiology Data Radiology results: report reviewed, image reviewed Disposition Clinical Impression: Bulging of intervertebral disc between L4 and L5 Disposition: HOME SELF-CARE Condition: Stable Instructions (If sedation given, give patient instructions): Acute Low Back Pain (ED) Additional Instructions: Please follow-up with orthopedic spine surgeon as soon as possible. Return to the ER for any new or worsening symptoms. Prescriptions: predniSONE 50 mg PO DAILY #5 tab Is patient prescribed a controlled substance at d/c from ED?: No Referrals: Matias Rubio MD [Primary Care Provider] - 1-2 days Ajay Caceres MD [STAFF PHYSICIAN] - 1-2 days Time of Disposition: 21:33
--- NOTE | 2023-12-22 21:04 | CT ---
EXAMINATION TYPE: CT lumbar spine wo con CT DLP: 592.5 mGycm, Automated exposure control for dose reduction was used. DATE OF EXAM: 12/22/2023 8:23 PM COMPARISON: 05/04/2022. CLINICAL INDICATION:Female, 43 years old with history of lumbar back pain; PHH, back pain, no injury TECHNIQUE: Multiple axial images were obtained from the midportion of T11 through the sacroiliac mayco nts. Soft tissue and bone windows in coronal and sagittal planes were obtained and reviewed. Contrast used: mL of , (None, if empty). Oral contrast used: (None, if empty). FINDINGS: Alignment: There are 5 lumbar type vertebral bodies within normal alignment. Bone: Mild multilevel degeneration changes with osteophyte formation disc space narrowing, facet mayco nt arthropathy, and disc bulging. Discs: T12-L1: No spinal canal or neural foraminal stenosis is identified. L1-L2: No spinal canal or neural foraminal stenosis is identified. L2-L3: No spinal canal or neural foraminal stenosis is identified. L3-L4: No spinal canal or neural foraminal stenosis is identified. L4-L5: Disc bulge with possible central and right central disc protrusion with mild spinal canal sten osis and moderate bilateral neural foraminal stenosis. L5-S1: No spinal canal or neural foraminal stenosis is identified. Other: None IMPRESSION: 1. No evidence for spinal fracture. 2. L4-L5 disc bulge with possible central and right central disc protrusion. Mild spinal canal stenos is and moderate neural foraminal stenosis at this level.
[2023-12-22] MEDS: HYDROmorphone 0.5 MG/0.5 ML SYRINGE IM STA (21:18)
[2023-12-22 21:58] VITALS: BP 111/73; PULSE 89; RESP 18; TEMP 97.6
== END 2023-12-22 21:38 | disposition home or self-care (01) ==
LOC: EC 18:59
DX: M51.36 Other intervertebral disc degeneration, lumbar region (principal); M48.061 Spinal stenosis, lumbar region without neurogenic claudication; M79.7 Fibromyalgia; Z79.899 Other long term (current) drug therapy; Z88.5 Allergy status to narcotic agent; Z88.6 Allergy status to analgesic agent; Z88.8 Allergy status to other drugs, medicaments and biological substances
CPT/HCPCS: 72131; 99284; 96372 ×2; J1885; J1170

== ENCOUNTER 2024-07-27 12:49 | Emergency (ER) | payer OTHER ==
[2024-07-27 12:55] VITALS: TEMP 97.8
--- NOTE | 2024-07-27 13:35 | ED ---
Upper Extremity HPI - General Chief Complaint: Extremity Injury, Upper Stated Complaint: L shoulder injury Time Seen by Provider: 07/27/24 13:06 Source: patient, old records reviewed Mode of arrival: ambulatory Limitations: no limitations - History of Present Illness Initial Comments: This is a 43-year-old female to the ER for evaluation of severe left shoulder pain history of back surgery history of neck surgery presents today for worsening shoulder pain that she is never had before pain is significantly worse here in the ER despite doing range of motion hot and cold packs. No trauma MD Complaint: Injury to:: left, shoulder -: days(s) Other Extremity Injury: Shoulder: Left Handedness: right Place: home, work Severity scale (1-10): 10 Worsens With: none Associated Symptoms: denies other symptoms Treatments Prior to Arrival: other (0) - Related Data Home Medications Medication Instructions Recorded Confirmed clonazePAM [KlonoPIN] 1 mg PO BID 05/17/14 11/09/21 Ibuprofen [Motrin] 800 mg PO Q6H PRN 02/17/19 11/09/21 FLUoxetine HCL [Sarafem] 60 mg PO DAILY 01/30/21 11/09/21 Etonogestrel/Ethinyl Estradiol 1 vag ring VAGINAL Q28D 11/09/21 11/09/21 [Nuvaring Vaginal Ring] Ondansetron Odt [Zofran Odt] 8 mg PO Q8H PRN 11/09/21 11/09/21 Rimegepant Sulfate [Nurtec Odt] 75 mg PO DAILY PRN 11/09/21 11/09/21 Rizatriptan Odt [Maxalt Lip Reading Teacher] 10 mg PO DAILY PRN 11/09/21 11/09/21 Previous Rx's Medication Instructions Recorded Benzonatate [Tessalon Perles] 200 mg PO Q8H PRN #15 capsule 11/09/21 Metoclopramide HCl [Reglan] 10 mg PO Q8H PRN #15 tablet 11/09/21 Omeprazole [PriLOSEC] 20 mg PO AC-BID 30 Days #60 cap 05/04/22 predniSONE 50 mg PO DAILY #5 tab 12/22/23 HYDROcodone/APAP 7.5-325MG [[place] 1 tab PO Q6HR PRN #12 tab 07/27/24 7.5-325] Allergies Allergy/AdvReac Type Severity Reaction Status Date / Time codeine Allergy Dyspnea Verified 07/27/24 12:55 fexofenadine HCl Allergy Dyspnea Verified 07/27/24 12:55 [From Janett] ketorolac tromethamine Allergy Unknown Verified 07/27/24 12:55 [From Toradol] cyclobenzaprine AdvReac Rapid Verified 07/27/24 12:55 [From Flexeril] Heart Rate diphenhydramine AdvReac Anxiety Verified 07/27/24 12:55 [From Benadryl] Review of Systems ROS Statement: Those systems with pertinent positive or pertinent negative responses have been documented in the HPI. ROS Other: All systems not noted in ROS Statement are negative. Past Medical History Past Medical History: Fibromyalgia Additional Past Medical History / Comment(s): migraines, nerve damage, chronic back and neck pain, ovarian cyst. History of Any Multi-Drug Resistant Organisms: None Reported Past Surgical History: Back Surgery Additional Past Surgical History / Comment(s): acdf surgery (neck surgery) Past Anesthesia/Blood Transfusion Reactions: No Reported Reaction Past Psychological History: Anxiety, Panic Disorder Smoking Status: Never smoker Past Alcohol Use History: Occasional Past Drug Use History: None Reported General Exam Limitations: no limitations General appearance: alert, in no apparent distress, anxious Head exam: Present: atraumatic, normocephalic, normal inspection Eye exam: Present: normal appearance, PERRL, EOMI. Absent: scleral icterus, conjunctival injection, periorbital swelling ENT exam: Present: normal exam, mucous membranes moist Neck exam: Present: normal inspection. Absent: tenderness, meningismus, lymphadenopathy Respiratory exam: Present: normal lung sounds bilaterally. Absent: respiratory distress, wheezes, rales, rhonchi, stridor Cardiovascular Exam: Present: regular rate, normal rhythm, normal heart sounds. Absent: systolic murmur, diastolic murmur, rubs, gallop, clicks GI/Abdominal exam: Present: soft, normal bowel sounds. Absent: distended, tenderness, guarding, rebound, rigid Extremities exam: Present: normal inspection, full ROM, normal capillary refill. Absent: tenderness, pedal edema, joint swelling, calf tenderness Back exam: Present: normal inspection Neurological exam: Present: alert, oriented X3, CN II-XII intact Psychiatric exam: Present: normal affect, normal mood Skin exam: Present: warm, dry, intact, normal color. Absent: rash Course Vital Signs 07/27/24 07/27/24 12:52 15:39 Temperature 97.8 F Pulse Rate 83 75 Respiratory 20 18 Rate Blood Pressure 118/78 106/68 O2 Sat by Pulse 99 97 Oximetry - Reevaluation(s) Reevaluation #1: 07/27/24 14:36 Medical records reviewed Reevaluation #2: 07/27/24 14:37 Patient's pain is controlled Reevaluation #3: 07/27/24 14:37 Informed of results and questions answered Reevaluation #4: Was pt. sent in by a medical professional or institution (, [facility], [facility], urgent care, hospital, or usp...) When possible be specific @ -no Did you speak to anyone other than the patient for history (EMS, parent, family, police, friend...)? What history was obtained from this source @ -no Did you review nursing and triage notes (agree or disagree)? Why? @ -agree Are old charts reviewed (outside hosp., previous admission, EMS record, old EKG, old radiological studies, urgent care reports/EKG's, usp records)? Report findings @ -yes Differential Diagnosis (chest pain, altered mental status, abdominal pain women, abdominal pain men, vaginal bleeding, weakness, fever, dyspnea, syncope, headache, dizziness, GI bleed, back pain, seizure, CVA, palpatations, mental health, musculoskeletal)? @ -prior EKG interpreted by me (3pts min.). @ -no X-rays interpreted by me (1pt min.). @ -yes negative for acute disease CT interpreted by me (1pt min.). @ -no U/S interpreted by me (1pt. min.). @ -no What testing was considered but not performed or refused? (CT, X-rays, U/S, labs)? Why? @ -none What meds were considered but not given or refused? Why? @ -none Did you discuss the management of the patient with other professionals (professionals i.e. [facility] Perez, [facility], lab, RT, psych nurse, social and political studies professor, wharf tender, teacher, learning and development officer, heel caser)? Give summary @ -no Was smoking cessation discussed for >3mins.? @ -no Was critical care preformed (if so, how long)? @ -no Were there social determinants of health that impacted care today? How? (Homelessness, low income, unemployed, alcoholism, drug addiction, transportation, low edu. Level, literacy, decrease access to med. care, detention, rehab)? @ -none Was there de-escalation of care discussed even if they declined (Discuss DNR or withdrawal of care, Hospice)? DNR status @ -no What co-morbidities impacted this encounter? (DM, HTN, Smoking, COPD, CAD, Cancer, CVA, ARF, Chemo, Hep., AIDS, mental health diagnosis, sleep apnea, morbid obesity)? @ -none Was patient admitted / discharged? Hospital course, mention meds given and route, prescriptions, significant lab abnormalities, going to OR and other pertinent info. @ - 43 female with acute on chronic shoulder pain. Patient shoulder pain is controlled here in the ER to the point of discharge, given Fernando 7 shoulder exercises and can be discharged home Admitted Undiagnosed new problem with uncertain prognosis? @ -no Drug Therapy requiring intensive monitoring for toxicity (Heparin, Nitro, Insulin, Cardizem)? @ -no Were any procedures done? @ -no Diagnosis/symptom? @ -Fernando 7 severe shoulder pain Acute, or Chronic, or Acute on Chronic? @ -Acute Uncomplicated (without systemic symptoms) or Complicated (systemic symptoms)? @ -Complicated Side effects of treatment? @ -no Exacerbation, Progression, or Severe Exacerbation? @ -exacerbation Poses a threat to life or bodily function? How? (Chest pain, [place], [place], pneumonia, PE, COPD, DKA, ARF, appy, cholecystitis, CVA, Diverticulitis, Homicidal, Suicidal, threat to staff... and all critical care pts) @ -no Medical Decision Making - Medical Decision Making 43 female with acute on chronic shoulder pain. Patient shoulder pain is controlled here in the ER to the point of discharge, given Fernando 7 shoulder exercises and can be discharged home - EKG Data -: EKG Interpreted by Me (EKG is sinus 83 NV 143 QRS 69 QTc 389) Disposition Clinical Impression: Left shoulder pain Disposition: HOME SELF-CARE Condition: Good Instructions (If sedation given, give patient instructions): Shoulder Pain (ED) Prescriptions: HYDROcodone/APAP 7.5-325MG [[place] 7.5-325] 1 tab PO Q6HR PRN #12 tab PRN Reason: Pain Is patient prescribed a controlled substance at d/c from ED?: No Referrals: Gregor Rubio MD [Primary Care Provider] - 1-2 days Time of Disposition: 14:30
[2024-07-27] MEDS: diazePAM 5 MG TAB PO STA (13:40)
[2024-07-27] MEDS: HYDROmorphone 1 MG/ML 1 ML SYRINGE IM STA (13:41)
[2024-07-27] MEDS: diphenhydrAMINE 50 MG CAP PO STA (13:49)
[2024-07-27] MEDS: LIDOCAINE 4% PATCH TOPICAL STA (13:49)
[2024-07-27] MEDS: PROCHLORPERAZINE 5 MG TAB PO STA (14:14)
[2024-07-27] MEDS: traMADol 50 MG STARTER PACK 3 TAB BTL PO STA (15:37)
[2024-07-27] MEDS: IBUPROFEN 600 MG STARTER PACK 4 TAB BTL PO STA (15:38)
[2024-07-27 15:40] VITALS: BP 106/68; PULSE 75; RESP 18
== END 2024-07-27 15:40 | disposition home or self-care (01) ==
LOC: EC 12:49
CPT/HCPCS: 93005; 96372; 99284

== ENCOUNTER → 2024-09-15 | Outpatient (CLI) | payer OTHER ==
--- NOTE | 2024-09-15 15:53 | US ---
EXAMINATION TYPE: US transvaginal DATE OF EXAM: 09/15/2024 COMPARISON: NONE CLINICAL INDICATION: Female, 43 years old with history of N92.0 EXCESSIVE AND FREQUENT MENSTRUATION; excessive menses. TECHNIQUE: Transvaginal (TV). Doppler imaging: Not performed. FINDINGS: EXAM MEASUREMENTS: Uterus: 8.3 x 4.7 x 4.1 cm Endometrial Stripe: .6 cm Right Ovary: 2.1 x 2.9 x 1.8 cm Left Ovary: 3.8 x 2.4 x 2.7 cm 1. Uterus: Anteverted Heterogenous 2. Endometrium: wnl 3. Right Ovary: wnl 4. Left Ovary: Anechoic area 1.7 x 2.6 x 2.2 cm. 5. Bilateral Adnexa: wnl 6. Posterior cul-de-sac: wnl IMPRESSION: 1. No evidence for acute process. 2. Endometrium is within normal limits for thickness. [facility], , 09/15/2024 3:50 PM
== END | disposition home or self-care (01) ==
LOC: RADUSWWP 15:12
PROVIDERS: ATTEND Family Medicine
DX: N92.0 Excessive and frequent menstruation with regular cycle (principal)
CPT/HCPCS: 76830